=== PATIENT | male | born 1955 | race African-American/Black ===

== ENCOUNTER 2018-11-13 22:26 | Inpatient (IN) | payer OTHER, BC ==
[2018-11-13] MEDS ORDERED: SODIUM CHLORIDE 0.9% 500 ML INFUS.BAG IV ONE (23:41)
[2018-11-13] MEDS ORDERED: ACETAMINOPHEN 1000 MG/100 ML VIAL (NON FORMULARY) IVPB ONE (23:41)
--- NOTE | 2018-11-13 23:45 | PDOC ---
History of Present Illness - General Stated Complaint: FELL Time Seen by Provider: 11/13/18 22:45 - History of Present Illness Initial Comments: The pt is a 63M w/ an unknown medical history who presents by EMS after being found down. Last known well 5 days ago. A friend of the pt called the apartment management today who called EMS. The pt was found down in his home. Pt w/ left sided weakness, no reported pain. Pt unable to provide history, EMS did not find any medications or paperwork for pt's medical history 11/14/18 00:17 NIH Stroke Scale - Last Known Well Date/Time & Onset Date Last Known Well: 11/09/18 Time Last Known Well: 00:00 - Initial Evaluation Level of consciousness: Not alert, but arousable with minimal stimulation Ask patient the month and their age: Answers one correctly Ask patient to open & close eyes; make fist and let go: Obeys both correctly Best gaze (horizontal eye movement): Normal Visual field testing: No visual field loss Facial paresis (Show teeth/raise eyebrows/close eyes tight): Minor paralysis ( flattened nasolabial fold, asymmetry on smiling) (left lower facial paralysis) Motor Function: Left Arm: No movement Motor Function: Right Arm: Normal (extends arm 90 (or 45) degrees for 10 seconds without drift Motor Function: Left Leg: No effort against gravity Motor Function: Right Leg: Drift Limb Ataxia: Present in two limbs Sensory(Use pinprick test arms,legs,trunk,face/side to side): Mild to moderate decrease in sensation (LUE/LLE) Best language (Describe picture, name items, read sentences): Mild to moderate aphasia Dysarthria (read several words): Mild to moderate slurring of words Extinction and Inattention: No abnormality - Total Score NIH Stroke Scale Score: 16 Past History - Past Medical History Allergies/Adverse Reactions: Allergies Allergy/AdvReac Type Severity Reaction Status Date / Time No Known Allergies Allergy Verified 11/14/18 00:13 Home Medications: Ambulatory Orders Unobtainable 11/14/18 Review of Systems - Review of Systems Able to Perform ROS?: No (2/2 medical condition) *Physical Exam - Physical Exam Comments: GENERAL: Drowsy, arousable to verbal stimuli, follows simple commands, oriented to person HEAD: No signs of trauma, normocephalic, atraumatic EYES: PERRLA, no gaze deviation, sclera anicteric, conjunctiva clear ENT: Hearing grossly normal, nares patent, oropharynx clear without exudates. Moist mucosa LUNGS: No distress, CTAB HEART: Tachycardic rate w/ regular rhythm, normal S1 and S2, no murmurs appreciated, peripheral pulses normal and equal bilaterally ABDOMEN: Soft, protuberant, NTTP, normoactive bowel sounds. No guarding, no rebound EXTREMITIES: LUE/LLE weakness and decreased sensation to light touch; Wound to left anterior wallis w/o active hemorrhage; multiple small abrasions to left shoulder, abrasion to right ant. lower leg NEUROLOGICAL: Left lower facial paralysis, LUE/LLE weakness (0/5); Slurred speech; follows simple commands SKIN: Warm, Dry 11/14/18 00:18 ED Treatment Course - LABORATORY CBC & Chemistry Diagram: 11/14/18 00:00 11/14/18 00:00 - RADIOLOGY Radiology Studies Ordered: Category Date Time Status HEAD CT WITHOUT CONTRAST [CT] Stat CT Scan 11/13/18 23:40 Ordered Radiograph Interpretation: EXAM: HEAD CT WITHOUT CONTRAST HISTORY: Status post fall FINDINGS: Age-indeterminate infarct within the right basal ganglia. Clinical correlation is advised. MRI correlation will be of value. No evidence of hemorrhage, mass effect, midline shift, hydrocephalus, or extra-axial collections. No hyperdense arterial or venous sinus. Vascular calcifications of the carotid siphons. The calvarium is unremarkable Reported By: Jose Antonio Castillo MD11/14/2018 01:41 Medical Decision Making - Medical Decision Making The pt is a 63M w/ an unknown PMH who presents for evaluation after being found down at home after 5 days. ED Course Labs sent ECG CXR CT head 11/14/18 00:19 Continue to pend acceptance of chemistries by lab 11/14/18 01:29 Notified by Imaging numerical control machine tool operator that pt has R basal ganglia infarct, acute vs subacute 11/14/18 02:[address] Young -Will give ASA 162mg 11/14/18 02:54 WBC 10.6, afebrile, non-tachycardic No anemia Lytes unremarkable Cr elevated at 1.4 Lactate 2.8 CK 2485 -receiving IVF Trop I neg Plan for admission for rhabdo, stroke 11/14/18 04:27 Discharge - Discharge Information Problems reviewed: Yes Clinical Impression/Diagnosis: Stroke Qualifiers: CVA mechanism: unspecified Qualified Code(s): I63.9 - Cerebral infarction, unspecified Rhabdomyolysis Qualifiers: Rhabdomyolysis type: non-traumatic Qualified Code(s): M62.82 - Rhabdomyolysis Fall Qualifiers: Encounter type: initial encounter Qualified Code(s): W19.XXXA - Unspecified fall, initial encounter Condition: Fair - Admission Yes - Follow up/Referral - Patient Discharge Instructions - Post Discharge Activity
--- NOTE | 2018-11-13 23:46 | PDOC ---
Documentation entered by Lizy Sorto SCRIBE, acting as scribe for Shagufta Herman MD. Shagufta Herman MD: This documentation has been prepared by the Macario velazquez Adrianna, SCRIBE, under my direction and personally reviewed by me in its entirety. I confirm that the documentation accurately reflects all work, treatment, procedures, and medical decision making performed by me. Attending Attestation - Resident Resident Name: Rob Lew - ED Attending Attestation I have performed the following: I have examined & evaluated the patient, The case was reviewed & discussed with the resident, I agree w/resident's findings & plan, Exceptions are as noted - HPI HPI: 11/13/18 23:35 63-year-old male brought in by ambulance after being found down on the floor. Friends or family members had called the building wrecker after this patient had not been heard up for the past 5 days. - Physicial Exam PE: 11/13/18 23:36 Disheveled 63-year-old male found in feces and urine brought in by paramedics, he has significant left sided weakness and sl slurred speech Head no scalp lacerations appreciated Dry mucus membranes neck supple lungs clear to auscultation CVS regular rate rhythm S1-S2 abdomen protuberant with a reducible umbilical hernia Back does not show any wounds There are 2 punctate puncture-like wounds on his left wallis and lower foot neuro slurred speech, significant left sided arm and leg weakness - Medical Decision Making 11/13/18 23:42 Concern for stroke ,sepsis,MD cr scan head,UA,ekg,cxr,cbc,BC,comp pending
[2018-11-14 00:12] VITALS: BMI 32.8
[2018-11-14 01:34] LABS: BASO % 0.2 % (0-2.0); EOS % 0.8 % (0-4.5); HEMATOCRIT 50.2 % (35.4-49); HEMOGLOBIN 16.3 GM/dL (11.7-16.9); MCH 28.5 pg (25.7-33.7); MCHC 32.5 g/dl (32.0-35.9); MEAN CELL VOLUME 87.7 fl (80-96); MEAN PLT VOLUME 10.3 fl (7.5-11.1); MONO % 5.3 % (3.8-10.2); NEUT % 85.7 % (42.8-82.8); PLATELET COUNT 189 K/MM3 (134-434); RBC 5.73 M/mm3 (4.00-5.60); RDW 14.3 % (11.9-15.9); WHITE BLOOD COUNT 10.6 K/mm3 (4.0-10.0)
[2018-11-14 01:39] LABS: VENOUS PC02 40.7 mmHg (38-52); VENOUS PH 7.39 (7.31-7.41)
[2018-11-14 01:41] LABS: VENOUS PO2 < 49 mmHg (28-48)
[2018-11-14 02:22] LABS: ALBUMIN 3.4 g/dl (3.4-5.0); BILIRUBIN,TOTAL 1.2 mg/dL (0.2-1); BLOOD UREA NITROGEN 37.4 mg/dL (7-18); CALCIUM 9.1 mg/dL (8.5-10.1); CREATININE 1.4 mg/dL (0.55-1.3); POTASSIUM 4.3 mmol/L (3.5-5.1); TOT PROT 8.8 g/dl (6.4-8.2)
[2018-11-14] MEDS ORDERED: ASPIRIN 81 MG CHEWABLE TABLETS PO ONE (02:54)
[2018-11-14] MEDS ORDERED: ASPIRIN 81 MG CHEWABLE TABLETS ONE (03:00)
--- NOTE | 2018-11-14 03:38 | PN ---
Teaching Attending Note Name of Resident: Deanna Quach ATTENDING PHYSICIAN STATEMENT I saw and evaluated the patient. I reviewed the resident's note and discussed the case with the resident. I agree with the resident's findings and plan as documented. SUBJECTIVE: 63M w/ an unknown medical history brought in by EMS after being found down on ground in his home. Last known to be well 5 days ago. A friend of the pt called the apartment management today who called EMS. The pt was found down in his home. Pt noted to have left sided weakness. No complaints of pain. nih stroke scale in er was 17. Patient himself unable to provide much history due to severe dysarthria. Relying mostly on EMR. OBJECTIVE: Last Vital Signs Temp Pulse Resp BP Pulse Ox 97.4 F L 103 H 19 141/100 96 11/14/18 00:06 11/14/18 00:06 11/14/18 00:06 11/14/18 00:06 11/14/18 00:06 gen- nontoxic, heent -head atraumatic, left eye discharge seen neck -supple s1+s2+rrr abdomen soft, nt, bs+ neuro -left facial droop, left upper and lower extremity paralysis, left sided decrease in sensation, +dysarthria, left biceps hyperreflexia, +babinski on left side Abnormal Lab Results 11/14/18 11/14/18 11/14/18 00:00 00:00 00:00 WBC 10.6 H RBC 5.73 H Hct 50.2 H Absolute Neuts (auto) 9.1 H Neutrophils % 85.7 H POC VBG pO2 < 49 H VBG O2 Sat (Julian) 66.0 L Carbon Dioxide 19 L BUN 37.4 H Creatinine 1.4 H Random Glucose 172 H Lactic Acid Total Bilirubin 1.2 H AST 61 H Creatine Kinase CK-MB (CK-2) Total Protein 8.8 H Total LDL Cholesterol 11/14/18 11/14/18 00:00 00:00 WBC RBC Hct Absolute Neuts (auto) Neutrophils % - POC VBG pO2 VBG O2 Sat (Julian) Carbon Dioxide BUN Creatinine Random Glucose Lactic Acid 2.8 H* Total Bilirubin AST Creatine Kinase 2485 H CK-MB (CK-2) 13.4 H Total Protein Total LDL Cholesterol [address] of head- right basilar infarct - indeterminant age ASSESSMENT AND PLAN: #CVA -suspect right cerebral territory infarct- possibly mca. Complete left sided paralysis. Probably incidental finding of right basilar infarct. Pt not a candidate for TPA - unknown time spent on ground and unknown onset time of symptoms. NIH scale was 17 -telemetry -npo -asa given -hold off statin given rhabdo -neuro consult -brain mri/mra -neck mra -carotid duplex -echo -speech and swallow eval -PT eval -bed rest -fall precautions -aspiration precautions #Rhabdomyolysis - ck 2485. likely from prolonged time spent on ground -send urine moglobin -iv fluid hydration #ESPINOZA- might be ATN from underlying rhabdo. -urine lytes -avoid nephrotoxins -renal u/s #S/p fall - no obvious evidence of trauma on exam #left eye bacterial conjunctivitis -moxifloxacin eye drops dvt ppx- heparin sc
[2018-11-14 03:46] LABS: INR 1.09 (0.83-1.09); PROTHROMBIN TIME (PATIENT) 12.9 SEC (9.7-13.0)
--- NOTE | 2018-11-14 03:51 | PN.NIHSS ---
NIH Stroke Scale - Last Known Well Date/Time & Onset Date Last Known Well: 11/08/18 - Initial Evaluation Level of consciousness: Alert Ask patient the month and their age: Answers both correctly Ask patient to open & close eyes; make fist and let go: Obeys both correctly Best gaze (horizontal eye movement): Normal Visual field testing: No visual field loss Facial paresis (Show teeth/raise eyebrows/close eyes tight): Complete paralysis of one or both sides (Upper and lower face) Motor Function: Left Arm: No movement Motor Function: Right Arm: Normal (extends arm 90 (or 45) degrees for 10 seconds without drift Motor Function: Left Leg: No effort against gravity Motor Function: Right Leg: No effort against gravity Limb Ataxia: Present in two limbs Sensory(Use pinprick test arms,legs,trunk,face/side to side): Mild to moderate decrease in sensation Best language (Describe picture, name items, read sentences): Mild to moderate aphasia Dysarthria (read several words): Mild to moderate slurring of words Extinction and Inattention: No abnormality - Total Score NIH Stroke Scale Score: 18
--- NOTE | 2018-11-14 04:04 | HP ---
CHIEF COMPLAINT: PCP: none HISTORY OF PRESENT ILLNESS: 63 y/o/m with PMHx of HTN, HLD, DM BIB by EMS after being found down in his apartment. A friend of the patient called his apartment management who called EMS and the patient was found on the floor of his apartment. Patient states he thinks he fell on 1/3 but is unsure. He was unable to get up due to weakness and states he soiled himself and had diarrhea when he was on the floor. Patient is not able to move his left arm and states he still feels weak. He states that before he fell he felt weak and dizzy and was unable to hold himself up. He states he did not lose consciousness and did not hit his head. He endorses chronic abd pain and back pain. He denies CP, SOB, Nausea, vomiting, changes in vision. ER course was notable for: (1) Age-indeterminate infarct within the right basal ganglia. (2) Neuro consulted, Dr. Martinez. recommended started aspirin PAST MEDICAL HISTORY: HTN, HLD, DM PAST SURGICAL HISTORY: denies Social History: Smoking: denies Alcohol: denies Drugs: denies Allergies No Known Allergies Allergy (Verified 11/14/18 00:13) HOME MEDICATIONS: Home Medications Medication Instructions Recorded Unobtainable 11/14/18 REVIEW OF SYSTEMS Constitutional: weakness, slurred speech. denies fever HEENT: denies vision changes Cardio: denies palpitations, chest pain Resp: denies SOB, wheezing GI: diarrhea, abd pain denies nausea, vomiting MSK: back pain. denies joint pain, neck pain SKIN: denies rashes Neuro: headache, left sided weakness. denies loss of consciousness, numbness, tingling PHYSICAL EXAMINATION Vital Signs - 24 hr 11/14/18 00:06 Temperature 97.4 F L Pulse Rate 103 H Respiratory 19 Rate Blood Pressure 141/100 O2 Sat by Pulse 96 Oximetry (%) GENERAL: slurred speech. Awake, alert, and fully oriented, HEAD: NC/AT EYES: PERRL, EOMI EARS, NOSE, THROAT: Dry Mucous membranes. ear normal. nares patent, oropharynx clear without exudates. NECK: supple, no cervical lymphadenopathy LUNGS: Breath sounds equal, clear to auscultation bilaterally. No wheezes, and no crackles. No accessory muscle use. HEART: Tachycardic, normal rhythm, normal S1 and S2 without murmur, rub or gallop. ABDOMEN: distended Soft, nontender, normoactive bowel sounds, no guarding, no rebound, no masses. MUSCULOSKELETAL: unable to move left arm. No bony deformities or tenderness, no step offs appreciated on the spine. No CVA tenderness. UPPER EXTREMITIES: 2+ pulses, warm, well-perfused. No cyanosis. No clubbing. No peripheral edema. LOWER EXTREMITIES: on the left wallis there is a 1cm circular wound with no active bleeding or drainage, no surrounding erythema NEUROLOGICAL: dysarthria, moderate aphasia, unilateral left sided facial paralysis, patient unable to move left arm, lower extremities strength 1/5, ataxia of right upper extremity, normal sensation but unable to distinguish between sharp/dull objects. NIHSS 18 PSYCHIATRIC: Cooperative. Good eye contact. Appropriate mood and affect. SKIN: decreased turgor. Warm. no rashes or lesions noted, normal capillary refill. Laboratory Results - last 24 hr 11/14/18 11/14/18 11/14/18 00:00 00:00 00:00 WBC 10.6 H RBC 5.73 H Hgb 16.3 Hct 50.2 H MCV 87.7 MCH 28.5 MCHC 32.5 RDW 14.3 Plt Count 189 MPV 10.3 Absolute Neuts (auto) 9.1 H Neutrophils % 85.7 H Lymphocytes % 8.0 Monocytes % 5.3 Eosinophils % 0.8 Basophils % 0.2 Nucleated RBC % 0 PT with INR INR PTT (Actin FS) VBG pH 7.39 POC VBG pCO2 40.7 POC VBG pO2 < 49 H VBG HCO3 24.0 VBG O2 Sat (Julian) 66.0 L VBG Base Excess -0.5 Sodium 141 Potassium 4.3 Chloride 106 Carbon Dioxide 19 L Anion Gap 16 BUN 37.4 H Creatinine 1.4 H Est GFR (CKD-EPI)AfAm 60.68 Est GFR (CKD-EPI)NonAf 52.35 Random Glucose 172 H Lactic Acid Calcium 9.1 Total Bilirubin 1.2 H AST 61 H ALT 22 Alkaline Phosphatase 115 Creatine Kinase Creatine Kinase Index CK-MB (CK-2) Troponin I Total Protein 8.8 H Albumin 3.4 Triglycerides Total LDL Cholesterol HDL Cholesterol 11/14/18 11/14/18 11/14/18 00:00 00:00 00:00 WBC RBC Hgb Hct MCV MCH MCHC RDW Plt Count MPV Absolute Neuts (auto) Neutrophils % Lymphocytes % Monocytes % Eosinophils % Basophils % Nucleated RBC % PT with INR 12.90 INR 1.09 PTT (Actin FS) 36.3 VBG pH POC VBG pCO2 POC VBG pO2 VBG HCO3 VBG O2 Sat (Julian) VBG Base Excess Sodium Potassium Chloride Carbon Dioxide Anion Gap BUN Creatinine Est GFR (CKD-EPI)AfAm Est GFR (CKD-EPI)NonAf Random Glucose Lactic Acid Calcium Total Bilirubin AST ALT Alkaline Phosphatase Creatine Kinase 2485 H Creatine Kinase Index 0.5 CK-MB (CK-2) 13.4 H Troponin I 0.04 Total Protein Albumin Triglycerides 125 Total LDL Cholesterol 213 H HDL Cholesterol 56 11/14/18 00:00 WBC RBC Hgb Hct MCV MCH MCHC RDW Plt Count MPV Absolute Neuts (auto) Neutrophils % Lymphocytes % Monocytes % Eosinophils % Basophils % Nucleated RBC % PT with INR INR PTT (Actin FS) VBG pH POC VBG pCO2 POC VBG pO2 VBG HCO3 VBG O2 Sat (Julian) VBG Base Excess Sodium Potassium Chloride Carbon Dioxide Anion Gap BUN Creatinine Est GFR (CKD-EPI)AfAm Est GFR (CKD-EPI)NonAf Random Glucose Lactic Acid 2.8 H* Calcium Total Bilirubin AST ALT Alkaline Phosphatase Creatine Kinase Creatine Kinase Index CK-MB (CK-2) Troponin I Total Protein Albumin Triglycerides Total LDL Cholesterol HDL Cholesterol Imaging: FINDINGS: Age-indeterminate infarct within the right basal ganglia. Clinical correlation is advised. MRI correlation will be of value. No evidence of hemorrhage, mass effect, midline shift, hydrocephalus, or extra-axial collections. No hyperdense arterial or venous sinus. Vascular calcifications of the carotid siphons. The calvarium is unremarkable Reported By: Jose Antonio Castillo MD11/14/2018 01:41 ASSESSMENT/PLAN: 63 y/o/m with PMHx of HTN, HLD, DM BIB by EMS for a CVA. 1)Stroke - NIHSS 18, R basal ganglia infarct acute vs. subacute -Patient with left sided weakness -Neuro consulted, Dr. Martinez -started ASA -PT -Speech/Swallow Eval -NPO for aspiration precaution -Fall and seizure precautions -Echocardiogram to evaluate cardiac function -MRI and MRA of brain -MRA neck -Carotid duplex 2)Elevated CK - patient reportedly lying on floor for 5 days -IVF NS@ 150mls/hr -Urine Myoglobin ordered -trend CK 3)Lactic acidosis -IVF -trend lactic acid 4)ESPINOZA -IVF -monitor 5)Elevated T-bili -RUQ U/S -get fractionated bilirubin 6)Prophylaxis -Heparin 7)FEN -NS @ 150mls/hr 8)Dispo -admitted to med surg Visit type - Emergency Visit Emergency Visit: Yes ED Registration Date: 11/14/18 Care time: The patient presented to the Emergency Department on the above date and was hospitalized for further evaluation of their emergent condition. - New Patient This patient is new to me today: Yes Date on this admission: 11/14/18 - Critical Care Critical Care patient: No ATTENDING PHYSICIAN STATEMENT I saw and evaluated the patient. I reviewed the resident's note and discussed the case with the resident. I agree with the resident's findings and plan as documented. SUBJECTIVE: OBJECTIVE: ASSESSMENT AND PLAN:
[2018-11-14] MEDS ORDERED: INSULIN (NOVOLOG) ASPART 100 UNITS/ML 10ML VIAL ONE (04:47)
[2018-11-14] MEDS: INSULIN SLIDING SCALE (NOVOLOG) 1 VIAL SQ SCH ×4 (05:00→23:51)
[2018-11-14] MEDS: SODIUM CHLORIDE 1,000 ML IV SCH (05:30)
[2018-11-14 06:01] LABS: EPI CELLS 15.7 /HPF (0-5/HPF); HYALINE CASTS 163 /lpf (0-8); URINE APPEARANCE CLOUDY; URINE BILIRUBIN 2+ (NEGATIVE); URINE COLOR DK YELLOW; URINE GLUCOSE (UA) NEGATIVE (NEGATIVE); URINE KETONE 1+ (NEGATIVE); URINE LEUK ESTERASE NEGATIVE (NEGATIVE); URINE NITRITE NEGATIVE (NEGATIVE); URINE PROTEIN 3+ (NEGATIVE)
[2018-11-14] MEDS ORDERED: HEPARIN NA (PORCINE) 5,000 UNITS/ML 1ML VIAL ONE (06:24)
[2018-11-14] MEDS: HEPARIN NA (PORCINE) 5,000 UNITS/ML 1ML VIAL SQ SCH ×3 (06:34→23:50)
[2018-11-14 07:43] LABS: BASO % 0.2 % (0-2.0); EOS % 0.7 % (0-4.5); HEMATOCRIT 46.5 % (35.4-49); HEMOGLOBIN 15.5 GM/dL (11.7-16.9); LYMPH % 7.7 % (8-40); MCH 28.7 pg (25.7-33.7); MCHC 33.4 g/dl (32.0-35.9); MEAN PLT VOLUME 8.7 fl (7.5-11.1); MONO % 8.4 % (3.8-10.2); PLATELET COUNT 222 K/MM3 (134-434); RBC 5.41 M/mm3 (4.00-5.60); RDW 14.2 % (11.9-15.9); WHITE BLOOD COUNT 12.6 K/mm3 (4.0-10.0)
[2018-11-14 07:48] LABS: ALBUMIN 3.4 g/dl (3.4-5.0); BILIRUBIN,TOTAL 1.4 mg/dL (0.2-1); BLOOD UREA NITROGEN 39.4 mg/dL (7-18); CREATININE 1.6 mg/dL (0.55-1.3); MAGNESIUM 2.4 mg/dL (1.8-2.4); PHOSPHOROUS 3.2 mg/dL (2.5-4.9); POTASSIUM 3.7 mmol/L (3.5-5.1); TOT PROT 8.3 g/dl (6.4-8.2)
--- NOTE | 2018-11-14 08:18 | CONSULT ---
Admitting History and Physical - Smoking History Smoking history: Never smoked - Alcohol/Substance Use Hx Alcohol Use: No History - Admission Reason For Visit: CEREBROVASCULAR ACCIDENT (CVA) Speech Evaluation - Communication Primary Language: DIVEHI Communication: Yes: Simple Responses (WFL), Dysarthria, Aphasia Oral Expression Ability: Yes: Mild Impairment - Speech Production Dysarthria: Yes: Flaccid Apraxia: Yes Able to Make Needs Known: Yes: Mildly Impaired Intelligibility: Yes: Moderately Impaired (secondary to dysarthria and aphasia) - Speech Characteristics Voice Loudness: Mildly Soft/Quiet Voice Pitch: Yes: Limited Variation Voice Phonatory-based Quality: Yes: Breathy, Weak Speech Pattern: Normal Speech Clarity: < 50% Nasal Resonance: Normal Articulation: Yes: Imprecise Rate of Speech: Too Slow Voice, Other Observations: Yes: Mouth Breathing, Disordered Intonation Voice Comment: Vocal quality observed as reduced pitch range, breathy - Language/Auditory Comprehension Follows: Yes: 1 Stage Simple Commands (WFL for some tasks i.e. "open your mouth " "move your tongue"), 2 Stage Simple Commands (Reduced secondary to l sided weakness.) Observation: Able to respond to yes/no queries: Yes, Yes/No Confusion: Yes ( sometimes), Comprehends Conversational Speech: Yes, Benefits from Slow Speech: Yes, Benefits from Repetiton: Yes, Benefits from Increased Volume of Speech: No - Language/Verbal Expression Aphasia: Yes: Paraphrasic Errors, Apraxia Able to Respond to Simple Queries: Yes: WNL Able to Communicate Wants and Needs: Yes: Mildly Impaired Functional Communication Status: Yes: Mildly Impaired Aware of Errors: No Attempts to Correct Errors: No Use of Gestures: No Written Expression: Not examined Oral Expression: Aphasic, apraxic dysarthric for sentences. Speech improves with short phrases and one word responses. Reading Comprehension: Not examined Calculations: Not examined - Memory/Perception superintendent terminal Memory: Yes: Moderately Impaired Short Term Memory: Yes: Moderately Impaired Hemaniopsia: Yes: Left Visual Neglect: Yes: Left - Swallow Evaluation/Bedside Assessment Current Nutritional Intake: NPO (pending swallow eval) Oral Secretions: Yes: Dryness, Tongue Coated Tracheostomy Present: No Patient on Ventilator: No Dentition: Yes: Adequate (fair condition), Missing Teeth Facial Symmetry at Rest: Facial Droop Left Facial Symmetry on Retraction: Facial Droop Left Facial Movement: Controlled Sensation: Normal Facial Comment: left side facial droop but WFL for swallowing, Jaw Position: Closed at Rest Against Resistance Opening: Weak (mild left side weakness) Against Resistance Closing: Normal Pucker Lips: Droops Left Smile: Droops Left Lips, Comment: mild left side weakness but able to purse Lingual Movement: Apraxic Lingual Speed of Movement: Reduced Lingual Movement Strgth Against Opposition: Normal Lingual Movement Characteristics: Fasciculations Lingual Comment: intra-oral WFL for speech and swallowing purposes. Soft Palate Description: Normal Color, Normal Arch Hard Palate Description: Normal Color, Normal Arch Gag Reflex: Strong Velopharyngeal Movement: Normal Laryngeal Elevation: WFL Laryngeal Movement: Able to Palpate Needs Assistance: Yes Rate of Intake: Slow/Holding Bolus Size: Small Labial Seal: Impaired Left (but WFL) Chewing: WFL Oral Prep Time: Increased A-P Transit: WFL Pocketing: Clears Independently Timing of Swallow: Delayed (mild 2-3 seconds) Odynophagia: Pharyngeal Coughing/Throat Clear: Yes (subtle ) Change in Voice: No Other Findings/Remarks: 63 yo male seen at bedside for swallow eval to r/o dysphagia. Pt is verbal, A& Ox2, cooperative. Admitted to [facility] after being found on the floor unable to get up with slurred speech (possible CVA). Pt presents with left sided paralysis of upper extremity and facial droop with slurred speech (50% intelligibility). PMHX includes HTN, HLD, DM BIB and ESPINOZA. Speech is aphasic, with apraxia and mild dysarthria. Vocal quality is reduced. Airway protection is WFL. CXR unremarkable at this time. Current Diet: NPO Pt given po trials of puree and soft cookie with total assistance revealed good acceptance, increase bolus manipulation with soft chewable cookie with increased A-P transit. Pharyngeal swallows are mild delayed 2-3 seconds with no cough observed after the swallow. Significant bolus residue observe with chewable bolus after the swallow and cleared with several liquid trials and verbal prompting. Thin liquid trials via cup with total assistance revealed adequate bolus containment and transport. Pharyngeal swallows are mild delayed 2-3 seconds with no cough observed after the swallow. Recommendations - Speech Evaluation, Impression/Plan Impression: 63 yo presents with mild to moderate oral phase dysphagia for chewable solids. Mild Pharyngeal phase dysphagia for purees and thin liquids observed with no s/s of aspiration. Speech is characterized as aphasic with mild apraxic and dysarthric secondary to CVA and left sided weakness. Recommended Therapies: Speech (consider for mild asphasia.), Articulation (left sided weakness affects articulation) Flight Communications Officer Goals: tolerate the least restrictive diet without s/s of aspiration. Short Term Goals: tolerate purees with thin liquids without s/s of aspiration - Dysphagia Impressions/Plan Swallowing Skills: Impaired Dysphagia Impressions: Mild Impairment (pharyngeal phase.), Moderate Impairment (for chewable solids.), Risk of Aspiration *Silent aspiration: cannot be R/O at bedside Dysphagia Treatment Plan: Small Bites, Safe Rate, 1/2 tsp. at a time, Elevate HOB during feed, Other (Provide oral care after meals. Monitor nutritional intake and pulmonary status) Dysphagia Evaluation Summary: Trial pureed with thin liquids as tolerated. Observe standard aspiration precautions with oral care after meal. Medication can be crushed in applesauce for ease of swallowing. Consider speech intervention for left facial droop and speech. Results given to hemodialysis charge nurse verbally and to PCP via chart. FRONTEND ENGINEER to follow up for diet tolerance, possible upgrade and speech therapy (if warranted). - Recommendations Diet Consistency: Dysphagia Pureed Medication Administration: Crushed with applesauce Liquids: Thin Liquids
--- NOTE | 2018-11-14 08:22 | PN ---
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, Physician History of Present Illness: The pt is a 63M w/ an unknown medical history who presents by EMS after being found downin his home. Last known well 5 days ago. A friend of the pt called the apartment management today who called EMS. Pt w/ left sided weakness, no reported pain. Pt unable to provide history, EMS did not find any medications or paperwork for pt's medical history - Current Medication List Current Medications: Active Medications Aspirin (Ecotrin -) 81 mg PO DAILY [facility] Heparin Sodium (Porcine) (Heparin -) 5,000 unit SQ TID [facility] Last Admin: 11/14/18 06:34 Dose: 5,000 unit Sodium Chloride (Normal Saline -) 1,000 mls @ 150 mls/hr IV ASDIR [facility] Last Admin: 11/14/18 05:30 Dose: 150 mls/hr Insulin Aspart (Novolog Vial Sliding Scale -) 1 vial SQ Q6H [facility]; Protocol Last Admin: 11/14/18 05:00 Dose: 1 unit - Objective Vital Signs: Vital Signs Temperature 97.4 F L 11/14/18 00:06 Pulse Rate 96 H 11/14/18 05:13 Respiratory Rate 15 11/14/18 05:13 Blood Pressure 180/92 H 11/14/18 05:13 O2 Sat by Pulse Oximetry (%) 100 11/14/18 05:13 Labs: CBC, BMP 11/14/18 06:43 INR, PTT INR 1.09 (0.83-1.09) 11/14/18 00:00
[2018-11-14 10:12] LABS: URINE RBC 10 /hpf (0-4); URINE WBC 3 /hpf (0-5)
[2018-11-14] MEDS ORDERED: ASPIRIN COATED 81 MG TABLET.EC ONE (10:32)
[2018-11-14] MEDS: ASPIRIN COATED 81 MG TABLET.EC PO SCH (10:37)
--- NOTE | 2018-11-14 12:11 | EKG ---
Test Reason : Blood Pressure : / mmHG Vent. Rate : 104 BPM Atrial Rate : 104 BPM P-R Int : 144 ms QRS Dur : 122 ms QT Int : 406 ms P-R-T Axes : 033 -70 -15 degrees QTc Int : 533 ms SINUS TACHYCARDIA POSSIBLE LEFT ATRIAL ENLARGEMENT RIGHT BUNDLE BRANCH BLOCK LEFT ANTERIOR FASCICULAR BLOCK BIFASCICULAR BLOCK LEFT VENTRICULAR HYPERTROPHY CANNOT RULE OUT SEPTAL INFARCT , AGE UNDETERMINED ABNORMAL ECG NO PREVIOUS ECGS AVAILABLE Confirmed by CAMERON PENA MD ([id number]) on 11/14/2018 12:10:35 PM Referred By: Confirmed By:CAMERON PENA MD
[2018-11-14] MEDS ORDERED: hydrALAZINE HCL 20 MG/ML VIAL ONE (12:29)
[2018-11-14] MEDS: hydrALAZINE HCL 20 MG/ML VIAL IVPUSH PRN (12:32)
--- NOTE | 2018-11-14 12:54 | EKG ---
Test Reason : Blood Pressure : / mmHG Vent. Rate : 096 BPM Atrial Rate : 096 BPM P-R Int : 140 ms QRS Dur : 136 ms QT Int : 424 ms P-R-T Axes : 035 -68 -07 degrees QTc Int : 535 ms SINUS RHYTHM WITH PREMATURE ATRIAL COMPLEXES POSSIBLE LEFT ATRIAL ENLARGEMENT RIGHT BUNDLE BRANCH BLOCK LEFT ANTERIOR FASCICULAR BLOCK BIFASCICULAR BLOCK LEFT VENTRICULAR HYPERTROPHY CANNOT RULE OUT SEPTAL INFARCT (CITED ON OR BEFORE 14-NOV-2018) ABNORMAL ECG WHEN COMPARED WITH ECG OF 14-NOV-2018 00:23, PREMATURE ATRIAL COMPLEXES ARE NOW PRESENT Confirmed by JEAN EVANGELISTA, CAMERON ([id number]) on 11/14/2018 12:54:34 PM Referred By: Confirmed By:CAMERON PENA MD
--- NOTE | 2018-11-14 16:21 | ECHO ---
Name: TRAVIS HILTONLYNDA Marcial Exam:Adult Echocardiogram Study Date: 11/14/2018 03:10 PM Age: 63 yrs Reason For Study: CVA EVALUATE CARDIAC FUNCTION Height: 67 in Weight: 210 lb BSA: 2.1 m2 MMode/2D Measurements & Calculations IVSd: 1.0 cm Ao root diam: 2.7 cm LVIDd: 4.4 cm LVIDs: 3.3 cm LVPWd: 0.99 cm EDV(Teich): 89.7 ml LVOT diam: 2.1 cm ESV(Teich): 43.9 ml Doppler Measurements & Calculations MV E max jose: 49.4 cm/sec Ao V2 max: 97.3 cm/sec MV A max jose: 90.8 cm/sec Ao max P.8 mmHg MV E/A: 0.54 MV dec time: 0.25 sec ELY(V,D): 3.2 cm2 LV V1 max P.1 mmHg Med Peak E' Jose: 4.4 cm/sec LV V1 max: 87.9 cm/sec Med E/e': 11.3 Lat Peak E' Jose: 8.6 cm/sec Lat E/e': 5.8 Procedure The study was technically difficult with many images being suboptimal in quality. Left Ventricle The left ventricular size, thickness and function are normal. The left ventricular ejection fraction is normal. E/A reversal consistent with but not diagnostic of poor LV compliance. Regional wall motion abnormalities cannot be excluded due to limited visualization. Right Ventricle The right ventricle is not well visualized. Atria The left atrium is not well visualized. Right atrium not well visualized. Mitral Valve There is mild mitral valve thickening. There is no mitral valve stenosis. There is trace to mild mitr al regurgitation. Tricuspid Valve The tricuspid valve is not well visualized. There is no tricuspid stenosis. There was insufficient TR detected to calculate RV systolic pressure. Aortic Valve The aortic valve is not well visualized. No hemodynamically significant valvular aortic stenosis. No aortic regurgitation is present. Pulmonic Valve The pulmonic valve is not well visualized. Great Vessels The aortic root is normal size. Pericardium/Pleura There is no pericardial effusion. Interpretation Summary The study was technically difficult with many images being suboptimal in quality. The left ventricular size, thickness and function are normal The left ventricular ejection fraction is normal. There is trace to mild mitral regurgitation. E/A reversal consistent with but not diagnostic of poor LV compliance There was insufficient TR detected to calculate RV systolic pressure. Regional wall motion abnormalities cannot be excluded due to limited visualization. MD Sanjiv Arora 11/14/2018 04:21 PM
--- NOTE | 2018-11-14 17:28 | HOSP ---
Subjective - Review of Symptoms Neurological: Yes: Other (paralysis to left arm/leg. Slurred speech.) Physical Examination Vital Signs: Vital Signs Temperature 97.4 F L 11/14/18 00:06 Pulse Rate 104 H 11/14/18 14:00 Respiratory Rate 24 H 11/14/18 14:00 Blood Pressure 168/104 H 11/14/18 14:00 O2 Sat by Pulse Oximetry (%) 100 11/14/18 14:00 Findings/Remarks: GENERAL: slurred speech. Awake, alert, and fully oriented, EYES: PERRL, EOMI EARS, NOSE, THROAT: Dry Mucous membranes. ear normal. nares patent, oropharynx clear without exudates. NECK: supple, no cervical lymphadenopathy LUNGS: Breath sounds equal, clear to auscultation bilaterally. No wheezes, and no crackles. No accessory muscle use. HEART: Tachycardic, normal rhythm, normal S1 and S2 without murmur, rub or gallop. ABDOMEN: distended Soft, nontender, normoactive bowel sounds, no guarding, no rebound, no masses. MUSCULOSKELETAL: unable to move left arm. No bony deformities or tenderness, no step offs appreciated on the spine. No CVA tenderness. UPPER EXTREMITIES: 2+ pulses, warm, well-perfused. No cyanosis. No clubbing. No peripheral edema. LOWER EXTREMITIES: on the left wallis there is a 1cm circular wound with no active bleeding or drainage, no surrounding erythema NEUROLOGICAL: dysarthria, moderate aphasia, unilateral left sided facial paralysis, patient unable to move left arm, lower extremities strength 1/5, ataxia of right upper extremity, normal sensation but unable to distinguish between sharp/dull objects. NIHSS 18 PSYCHIATRIC: Cooperative. Good eye contact. Appropriate mood and affect. SKIN: decreased turgor. Warm. no rashes or lesions noted, normal capillary refill. Labs: CBC, BMP 11/14/18 06:43 11/14/18 06:43 Hospitalist Encounter Assessment: Seen in ED awaiting bed to tele floor. Brother at bedside. Troponins .04-->3.24-->3.2. No ischemic changes on EKGs, RBBB. Will continue to trend . CPK coming down. c/w IVF. Pending TTE, Carotid duplex, cardiology consult, MRI brain/neck Evaluated by CATERING ATTENDANT. Cleared for dysphagia diet with thin liquids Outcome: maintain as in patient on telemetry full code
--- NOTE | 2018-11-14 17:32 | CON.NEURO ---
Consult - Alcohol/Substance Use Hx Alcohol Use: No - Smoking History Smoking history: Never smoked Home Medications - Allergies Allergies/Adverse Reactions: Allergies Allergy/AdvReac Type Severity Reaction Status Date / Time No Known Allergies Allergy Verified 11/14/18 00:13 - Home Medications Home Medications: Ambulatory Orders NK [No Known Home Medication] 11/14/18 Physical Exam-Neuro Vital Signs: Vital Signs Temperature 97.4 F L 11/14/18 00:06 Pulse Rate 104 H 11/14/18 14:00 Respiratory Rate 24 H 11/14/18 14:00 Blood Pressure 168/104 H 11/14/18 14:00 O2 Sat by Pulse Oximetry (%) 100 11/14/18 14:00 Labs: CBC, BMP 11/14/18 06:43 11/14/18 06:43 INR, PTT INR 1.09 (0.83-1.09) 11/14/18 00:00 Assessment/Plan cc Left sided hemiparesis HPI 63 year old male history of HTN,HLD,DM, came with left sided hemiparesis. Patient was lying on the floor for five days, when he was found laying on flOOR. Paitent never had stroke, he did have ? cad. Patient had ct head showed right basal ganglia ishcemic lesion. He is waiting for mri. He had speech and passed swallowing evaluation. PAST MEDICAL HISTORY: HTN, HLD, DM PAST SURGICAL HISTORY: denies Social History: Smoking: denies Alcohol: denies Drugs: denies Allergies No Known Allergies Allergy (Verified 11/14/18 00:13) HOME MEDICATIONS: Home Medications Medication Instructions Recorded Unobtainable 11/14/18 ROS reviewed in chart NEUROLOGICAL EXAMINATION Alert oriented x 2, speech is dysarthric, nih score 18 bp 140/100, neck is supple left sided facial palsy, eomi, left dense hemiparesis ct head right basalganglia infarct Assessment/Plan Right mca stroke ( right basal ganglia) risk factor DM,HTN. Patient has nih score of 18, stroke is five days old. Patient passed swallowing test PLAN: continue aspirin and statin - hold mra of neck as bun creatinine high vascular surgery consult - mra of brain and mri of brain without contrast - speech consult appreciated - pt dvt prophylaxis Thanking you so much Beau Young MD
[2018-11-14] MEDS: ATORVASTATIN CA 80 MG TABLET (FP) PO SCH (23:50)
[2018-11-15] MEDS: hydrALAZINE HCL 20 MG/ML VIAL IVPUSH PRN ×3 (01:27→22:47)
[2018-11-15] MEDS: SODIUM CHLORIDE 1,000 ML IV SCH (05:51)
[2018-11-15] MEDS: HEPARIN NA (PORCINE) 5,000 UNITS/ML 1ML VIAL SQ SCH ×3 (05:51→22:45)
[2018-11-15] MEDS: INSULIN SLIDING SCALE (NOVOLOG) 1 VIAL SQ SCH ×4 (05:51→22:50)
[2018-11-15] MEDS: ASPIRIN COATED 81 MG TABLET.EC PO SCH (09:39)
--- NOTE | 2018-11-15 10:31 | CONSULT ---
<Marcelino Bishop P - Last Filed: 11/15/18 12:25> - Consultation REQUESTING PROVIDER: Vascular Surgery - Malik Koehler CONSULT REQUEST: We have been asked to surgically evaluate this patient for stroke in presence of carotid stenosis Hospitalist BROILER MANAGER: Chacha [facility] HPI: Called to shaneal 63 yo male w/ PMHx as noted below. Patient was BIBA/EMS. Per medical charting/notes, a concerned friend had called the building management to do a welfare check as he wasn't answering his phone. Patient was found lying on the floor of his apartment. Patient states he thinks he fell on but isn't 100% sure of the date. Per notes, at the time, he was unable to get up due to weakness and states he soiled (fecal/urine) himself while he was on the ground. Left sided hemiparesis. Still feels weak. Even though fall was unwitnessed patient states he denies LOC or any head trauma. Denies HERNANDEZ, diaphoresis, palpitations prior too or post fall. Denies n/v/f/c, CP, SOB. Denies changes in vision. Head CT (non-con): Right basal ganglia ishcemic lesion. He had speech and passed swallowing evaluation. Carotid Duplex: small to moderate soft plaque 50-60% stenosis PMHx: HTN, HLD, DM, chronic LBP & ABD pain PSHx: Denies. Home Meds: None Allergies: NKDA ROS: CONSTITUTIONAL: Absent: generalized weakness, malaise, loss of appetite, weight change CARDIOVASCULAR: Absent: lightheadedness, peripheral edema RESPIRATORY: Absent: cough, wheezing, stridor, hemoptysis GASTROINTESTINAL: Absent: abdominal pain, abdominal distension, diarrhea, constipation, melena, hematochezia GENITOURINARY: Absent: dysuria, frequency, urgency, hesitancy, hematuria, flank pain, genital pain MUSCULOSKELETAL: Absent: myalgia, arthralgia, joint swelling, back pain, neck pain SKIN: Absent: rash, itching, pallor HEMATOLOGIC/IMMUNOLOGIC: Absent: easy bleeding, easy bruising, lymphadenopathy NEUROLOGIC: Absent: see hpi PSYCHIATRIC: Absent: anxiety, depression, suicidal or homicidal ideation, hallucinations. PE: GEN: slurred speech. A&O HEAD: NC. AT EYES: PERRL NECK: No appreciable carotid bruit on auscultation bilat LUNGS: CTA bilat HEART: Tachy (100bmp), NSR ABDOMEN: obese habitus. Soft, nt, normoactive bowel sounds, no pulsatile mass. NEURO: dysarthria, moderate aphasia, unilateral left sided facial paralysis, patient unable to move LUE, LE strength 1/5, ataxia of RUE, sensory intact but unable to distinguish between sharp/dull objects PSYCHIATRIC: Cooperative. Good eye contact. Appropriate mood and affect. Last Vital Signs Temp Pulse Resp BP Pulse Ox 98 F 100 H 20 133/85 98 11/15/18 08:53 11/15/18 10:09 11/15/18 08:53 11/15/18 10:09 11/15/18 02:00 CBC, BMP 11/14/18 06:43 11/14/18 06:43 INR, PTT INR 1.09 (0.83-1.09) 11/14/18 00:00 Troponin 11/14/18 12:20 Troponin I 3.22 H* Problem List - Problems (1) CVA (cerebral vascular accident) Assessment/Plan: 63 yo male admitted s/p CVA (Right MCA stroke --> right basal ganglia) now left hemiparesis. NIH score of 18, stroke is five days old. Patient passed swallowing test As per Neurology --> continue ASA & statin f/u MRA (done) PT DVT PPX Trend Troponin Vascular surgery to cont following Code(s): I63.9 - CEREBRAL INFARCTION, UNSPECIFIED Qualifiers: Laterality of affected vessel: left Visit type - Case Type Case Type: ED Admission - Emergency Emergency Visit: Yes ED Registration Date: 11/14/18 Care time: The patient presented to the Emergency Department on the above date and was hospitalized for further evaluation of their emergent condition. - New patient This patient is new to me today: Yes Date on this admission: 11/15/18 <Malik Koehler - Last Filed: 11/15/18 13:25> - Consultation REQUESTING PROVIDER: CONSULT REQUEST: We have been asked to surgically evaluate this patient for ( specify). PCP:Chacha Trinidda NP HISTORY OF PRESENT ILLNESS: PMHx: PSHx: Home Medications Medication Instructions Recorded NK [No Known Home Medication] 11/14/18 Allergies Allergy/AdvReac Type Severity Reaction Status Date / Time No Known Allergies Allergy Verified 11/14/18 00:13 REVIEW OF SYSTEMS: CONSTITUTIONAL: Absent: fever, chills, diaphoresis, generalized weakness, malaise, loss of appetite, weight change CARDIOVASCULAR: Absent: chest pain, syncope, palpitations, irregular heart rate, lightheadedness , peripheral edema RESPIRATORY: Absent: cough, shortness of breath, dyspnea with exertion, wheezing, stridor, hemoptysis GASTROINTESTINAL: Absent: abdominal pain, abdominal distension, nausea, vomiting, diarrhea, constipation, melena, hematochezia GENITOURINARY: Absent: dysuria, frequency, urgency, hesitancy, hematuria, flank pain, genital pain MUSCULOSKELETAL: Absent: myalgia, arthralgia, joint swelling, back pain, neck pain SKIN: Absent: rash, itching, pallor HEMATOLOGIC/IMMUNOLOGIC: Absent: easy bleeding, easy bruising, lymphadenopathy NEUROLOGIC: Absent: headache, focal weakness, paresthesias, dizziness, unsteady gait, seizure, mental status changes, bladder or bowel incontinence PSYCHIATRIC: Absent: anxiety, depression, suicidal or homicidal ideation, hallucinations. PHYSICAL EXAM: GENERAL: Awake, alert, and fully oriented, in no acute distress. HEAD: Normal with no signs of trauma. EYES: PERRL, sclera anicteric, conjunctiva clear. NECK: Normal ROM, supple without lymphadenopathy, JVD, or masses. LUNGS: Clear to auscultation bilat anteriorly. No wheezes, and no crackles. No accessory muscle use. HEART: Regular rate and rhythm. No murmurs ABDOMEN: Soft, nontender, not distended, normoactive bowel sounds, no guarding, no rebound, no masses. No organomegaly. MUSCULOSKELETAL: Normal ROM at all joints. No bony deformities or tenderness. No CVA tenderness. UPPER EXTREMITIES: 2+ pulses, warm, well-perfused. No cyanosis. Cap refill <2 seconds. No peripheral edema. LOWER EXTREMITIES: 2+ pulses, warm, well-perfused. No calf tenderness. No peripheral edema. NEUROLOGICAL: Normal speech, gait not observed. PSYCH: Cooperative. Good eye contact. Appropriate mood and affect. SKIN: Warm, dry, normal turgor, no rashes or lesions noted. Vital Signs Temperature 98 F 11/15/18 08:53 Pulse Rate 100 H 11/15/18 10:09 Respiratory Rate 20 11/15/18 08:53 Blood Pressure 133/85 11/15/18 10:09 O2 Sat by Pulse Oximetry (%) 98 11/15/18 02:00 Lab Results WBC 12.6 K/mm3 (4.0-10.0) H 11/14/18 06:43 RBC 5.41 M/mm3 (4.00-5.60) 11/14/18 06:43 Hgb 15.5 GM/dL (11.7-16.9) 11/14/18 06:43 Hct 46.5 % (35.4-49) 11/14/18 06:43 MCV 86.0 fl (80-96) 11/14/18 06:43 MCHC 33.4 g/dl (32.0-35.9) 11/14/18 06:43 RDW 14.2 % (11.9-15.9) 11/14/18 06:43 Plt Count 222 K/MM3 (134-434) 11/14/18 06:43 Sodium 145 mmol/L (136-145) 11/15/18 11:55 Potassium 3.6 mmol/L (3.5-5.1) 11/15/18 11:55 Chloride 111 mmol/L (98-107) H 11/15/18 11:55 Carbon Dioxide 25 mmol/L (21-32) 11/15/18 11:55 Anion Gap 9 MMOL/L (8-16) 11/15/18 11:55 BUN 57.2 mg/dL (7-18) H 11/15/18 11:55 Creatinine 2.1 mg/dL (0.55-1.3) H 11/15/18 11:55 Random Glucose 219 mg/dL (74-106) H 11/15/18 11:55 Calcium 8.4 mg/dL (8.5-10.1) L 11/15/18 11:55 INR 1.09 (0.83-1.09) 11/14/18 00:00 Carotid doppler images reviewed. PSV/EDV all normal. No need for any surgery Malik Koehler DO
--- NOTE | 2018-11-15 10:41 | PN ---
Physical Exam: SUBJECTIVE: Patient seen and examined at the bedside. OBJECTIVE: Patient is a 63 year old male with a significant past medical history of hypertension, hld who was brought into the ED on 11/14/2018 via EMS after being found down in his apartment. He has been reportedly on the floor for apx 5 days. He was found to have a non hemorrhagic right basal ganglia striacap infarct and an elevated CPK on admission. His troponins were also elevated. on exam, noted to have belly breathing, accessory muscle use on supplemental oxygen. repeat chest xray and lower the IVF. imaging: echo: poor lv compliance, trace to mild mitral regurg. carotid doppler: small to mod size soft plaques 50-69% stenosis head ct: recent prom. non hemorrhagic right basal ganglia straicapsular infarct involving caudate nucleus Vital Signs Period Temp Pulse Resp BP Sys/Gibson Pulse Ox Last 24 Hr 97.6 F-98.7 F 90-109 18-97 133-187/72-129 98-100 GENERAL: slurred speech. Awake, alert, and fully oriented, HEAD: Normal with no signs of trauma EYES: PERRL, extraocular movements intact, sclera anicteric, conjunctiva clear. No ptosis. ENT: Ears normal, nares patent, oropharynx clear without exudates NECK: Trachea midline, full range of motion, supple. LUNGS: diminished bilaterally with accessory muscle use. HEART: Regular rate and rhythm, ekg monitor tech: shows sinus rhythm, with PVCs. controlled rate MUSCULOSKELETAL: unable to move left arm. No bony deformities or tenderness, no step offs appreciated on the spine. No CVA tenderness. ABDOMEN: Soft, nontender, nondistended EXTREMITIES: left wallis 1 cm circular wound no active bleeding or drainage. NEUROLOGICAL: gait not observed. left sided weakness, left facial droop PSYCH: Normal mood, normal affect. Laboratory Results - last 24 hr 11/14/18 11/14/18 11/14/18 11:52 12:20 13:11 POC Glucometer 227 186 Creatine Kinase 1738 H Creatine Kinase Index 0.7 CK-MB (CK-2) 13.0 H Troponin I 3.22 H* 11/14/18 11/15/18 11/15/18 17:15 05:47 09:38 POC Glucometer 179 140 159 Creatine Kinase Creatine Kinase Index CK-MB (CK-2) Troponin I Active Medications Generic Name Dose Route Start Last Admin Trade Name Freq PRN Reason Stop Dose Admin Aspirin 81 mg 11/14/18 10:00 11/15/18 09:39 Ecotrin - PO 81 mg DAILY SHARON Administration Atorvastatin Calcium 80 mg 11/14/18 22:00 11/14/18 23:50 Lipitor - PO 80 mg HS SHARON Administration Heparin Sodium (Porcine) 5,000 unit 11/14/18 06:00 11/15/18 05:51 Heparin - SQ 5,000 unit TID SHARON Administration Hydralazine HCl 10 mg 11/14/18 11:58 11/15/18 01:27 Apresoline Injection - IVPUSH 10 mg Q6H PRN Administration HYPERTENSION Sodium Chloride 1,000 mls @ 150 mls/hr 11/14/18 04:15 11/15/18 05:51 Normal Saline - IV 150 mls/hr ASDIR SHARON Administration Insulin Aspart 1 vial 11/14/18 04:15 11/15/18 09:40 Novolog Vial Sliding Scale - SQ 2 unit Q6H SHARON Administration Protocol ASSESSMENT/PLAN: Problem List - Problems (1) CVA (cerebral vascular accident) Assessment/Plan: head ct head showed right basal ganglia ischemic lesion. MRI of brain confirmed stroke and carotid u/s with 50-69% percent stenosis. seen by vascular and no interventions currently planned. on lipitor 80, asa 81. initiated PT, swallow eval completed and diet adjusted/ downgraded for high risk of aspiration. for MBS monitor on tele Code(s): I63.9 - CEREBRAL INFARCTION, UNSPECIFIED Qualifiers: Laterality of affected vessel: left (2) Hypertension Assessment/Plan: elevated in the setting on recent stroke start on metoprolol 25 xl and monitor. Code(s): I10 - ESSENTIAL (PRIMARY) HYPERTENSION (3) ESPINOZA (acute kidney injury) Assessment/Plan: worsening espinoza. fluids d/c secondary to volume overload and accessory muscle use increased congestion on chest xray bhakta draining dark krystal urine also has rhabdo renal consulted Code(s): N17.9 - ACUTE KIDNEY FAILURE, UNSPECIFIED (4) Rhabdomyolysis Assessment/Plan: improving daily cpk Code(s): M62.82 - RHABDOMYOLYSIS (5) Elevated troponin Assessment/Plan: troponin 3.22 > 1.09 EKG 11/14/18, left atrial enlargement, RBBB, LVH, LAD Echo11/14/18: Normal LV size and function, abnormal diastolic relaxation. continue metoprolol, asa cardiology following Code(s): R79.89 - OTHER SPECIFIED ABNORMAL FINDINGS OF BLOOD CHEMISTRY (6) Prophylactic measure Assessment/Plan: heparin physical therapy bowel regimen full code Code(s): Z29.9 - ENCOUNTER FOR PROPHYLACTIC MEASURES, UNSPECIFIED Visit type - Emergency Visit Emergency Visit: Yes ED Registration Date: 11/14/18 Care time: The patient presented to the Emergency Department on the above date and was hospitalized for further evaluation of their emergent condition. - New Patient This patient is new to me today: Yes Date on this admission: 11/16/18 - Critical Care Critical Care patient: No - Discharge Referral Referred to [facility] Med P.C.: No
[2018-11-15] MEDS ORDERED: PT OWN MED DRAWER 7, Y5N ONE (10:59)
[2018-11-15] MEDS ORDERED: SODIUM CHLORIDE 1,000 ML IV SCH (11:01)
--- NOTE | 2018-11-15 11:23 | PN ---
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, CATALYTIC CONVERTER OPERATOR - Note 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: Selected Entries 11/14/18 11/14/18 11/15/18 00:06 23:53 00:00 Temperature 97.4 F L 97.6 F 98 F 11/15/18 11/15/18 11/15/18 02:00 06:00 08:53 Temperature 98.7 F 98.5 F 98 F Pt on puree/thin liquid, with occasional cough response on thin liquids. Pt is slow to respond, with impaired ability to establish,maintain eye contact. Upon command, claps mid-air, without awareness of flaccid ue on bed. Able to cross midline with cues and identify hand. Left neglect/hemianopsia/perceptual deficits suspected. Flat affect, suspect impaired insight/memory. Able to name/repeat, slow to initiate speech. Speech mod to severely Dysarthric, with poor (+) intelligibility. Knows he is hospital but not date/age. 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 Swallow quite delayed, reduced in excursion. Pending cxr. Reports difficulty taking deep breath. Suggest downgrade to puree/nectar TL MBS to r/o aspiration, stasis, timeliness of swallow affecting functionality. Suggest [facility]hab when medically stable
[2018-11-15] MEDS: metoPROLOL SUCCINATE 25 MG TAB.SR.24H (FP) PO SCH (12:18)
[2018-11-15 12:38] LABS: ALBUMIN 2.8 g/dl (3.4-5.0); BILIRUBIN,TOTAL 1.2 mg/dL (0.2-1); BLOOD UREA NITROGEN 57.2 mg/dL (7-18); CALCIUM 8.4 mg/dL (8.5-10.1); CREATININE 2.1 mg/dL (0.55-1.3); POTASSIUM 3.6 mmol/L (3.5-5.1); TOT PROT 7.1 g/dl (6.4-8.2)
--- NOTE | 2018-11-15 14:20 | PN ---
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 (short form) - Note 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: cc Left sided hemiparesis HPI 63 year old male history of HTN,HLD,DM, came with left sided hemiparesis. Patient was lying on the floor for five days, when he was found laying on flOOR. Paitent never had stroke, he did have ? cad. Patient had ct head showed right basal ganglia ishcemic lesion. He is waiting for mri. He had speech and passed swallowing evaluation. No new symptoms, mri of brain confirmed stroke and carotid ultrasound unremarkable NEUROLOGICAL EXAMINATION Alert oriented x 2, speech is dysarthric, neck is Supple left sided facial palsy, eomi, left dense hemiparesis ct head right basalganglia infarct, mri confirmed right basal ganglia stroke Assessment/Plan Right mca stroke ( right basal ganglia) risk factor DM,HTN. Patient has nih score of 18, stroke is five days old. Patient passed swallowing test PLAN: continue aspirin and statin vascular surgery consult appreciated - speech consult appreciated - pt dvt prophylaxis Thanking you so much Beau Young MD
--- NOTE | 2018-11-15 14:31 | CONSULT ---
Consult - text type - Consultation Consultation Note: Renal consult for ESPINOZA This is a 63 year old gentleman with history of hypertension and DM type 2 who presented from home with AMS and fall and found to have acute CVA and rhabdo with worsening renal function. Seen and examined at the bedside. Awake and alert but not able to provide a good history. Denies any history of kidney related problems. Denies any stones in the past. BP has been flucating during hospital admission. Has bhakta in place with dark urine. Was taken off IVF for congestion on CXR. PMHx: as above Allergies: NKDA Family Hx: NC Social Hx: No T/A/D ROS: as per HPI, all other pertinent ros negative Vital Signs Temperature 98 F 11/15/18 08:53 Pulse Rate 100 H 11/15/18 10:09 Respiratory Rate 20 11/15/18 08:53 Blood Pressure 133/85 11/15/18 10:09 O2 Sat by Pulse Oximetry (%) 98 11/15/18 02:00 Intake & Output 11/12/18 11/13/18 11/14/18 11/15/18 23:59 23:59 23:59 23:59 Intake Total 1150 Output Total 900 Balance 250 Weight 95.254 kg NAD neck supple no JVD RRR Dec BS, no rales soft NT/ND no LE edema, cyanosis or clubbing CBC, BMP 11/15/18 11:55 Current Medications Aspirin (Ecotrin -) 81 mg PO DAILY [facility] Last Admin: 11/15/18 09:39 Dose: 81 mg Atorvastatin Calcium (Lipitor -) 80 mg PO HS [facility] Last Admin: 11/14/18 23:50 Dose: 80 mg Heparin Sodium (Porcine) (Heparin -) 5,000 unit SQ TID [facility] Last Admin: 11/15/18 05:51 Dose: 5,000 unit Hydralazine HCl (Apresoline Injection -) 10 mg IVPUSH Q6H PRN PRN Reason: HYPERTENSION Last Admin: 11/15/18 13:20 Dose: 10 mg Insulin Aspart (Novolog Vial Sliding Scale -) 1 vial SQ Q6H [facility]; Protocol Last Admin: 11/15/18 09:40 Dose: 2 unit Metoprolol Succinate (Toprol Xl -) 12.5 mg PO DAILY [facility] Last Admin: 11/15/18 12:18 Dose: 12.5 mg 63 year old gentleman with history of hypertension and DM type 2 who presented from home with AMS and fall and found to have acute CVA and rhabdo with worsening renal function. 1. Acute Renal Injury 2. Acute CVA 3. Rhabdomyolysis 4. Hypertension 4. DM type 2 Etiology of ESPINOZA: Pigment injury from rhabdomyosis vs. hemodynamic injury from BP changes vs. ATN Check urine studies for FeNa, UPCR and urine eosinohils Maintain bhakta for now Holding IVF because of chest congestion if pt becomes hypoxic or respiratory status worsens would give IV lasix Check renal US to monitor for any evidence of obstruction or CKD Neurology follow up would consider addition of amlodpine 5mg for for steady blood pressure control Thank you Eusebio Fritz DO
--- NOTE | 2018-11-15 15:11 | CON.CARD ---
Consult Consult Specialty:: Cardiology Reason for Consultation:: positive troponin - History of Present Illness Chief Complaint: fatigue History of Present Illness: This is a 63 year old male with a PMH of HTN, HLD, and DM. He was found on the ground in his apartment. He was believed to be on the ground for at least several days, unable to get up secondary to weakness. No LOC. Head CT showed and age indeterminate infarct. EKG 11/14/18 possible LAE, RBBB, LVH, LAD, and NSSTTW changes. Echocardiogram 11/14/18: Normal LV size and function, abnormal diastolic relaxation. Troponin 11/14/18 3.22 11/15/18 1.09 He denies cardiac symptoms. - Alcohol/Substance Use Hx Alcohol Use: No - Smoking History Smoking history: Unknown if ever smoked Home Medications - Allergies Allergies/Adverse Reactions: Allergies Allergy/AdvReac Type Severity Reaction Status Date / Time No Known Allergies Allergy Verified 11/14/18 00:13 - Home Medications Home Medications: Ambulatory Orders NK [No Known Home Medication] 11/14/18 Vital Signs: Vital Signs Temperature 98 F 11/15/18 08:53 Pulse Rate 100 H 11/15/18 10:09 Respiratory Rate 20 11/15/18 08:53 Blood Pressure 133/85 11/15/18 10:09 O2 Sat by Pulse Oximetry (%) 98 11/15/18 09:00 Constitutional: Yes: No Distress Eyes: Yes: WNL HENT: Yes: WNL Neck: Yes: WNL Respiratory: Yes: CTA Bilaterally Gastrointestinal: Yes: Soft Cardiovascular: Yes: Regular Rate and Rhythm Heart Sounds: Yes: S1, S2 Extremities: Yes: WNL Edema: No Neurological: Yes: Confusion - Other Data Labs, Other Data: CBC, BMP 11/15/18 11:55 INR, PTT INR 1.09 (0.83-1.09) 11/14/18 00:00 Troponin, BNP 11/15/18 11:55 Troponin I 1.04 H* Troponin, BNP 11/15/18 11:55 Troponin I 1.04 H* Stress Echo: Pending (Awke) Assessment/Plan 63 year old male with a PMH of HTN, HLD, and DM. He was found on the ground in his apartment. He was believed to be on the ground for at least several days, unable to get up secondary to weakness. No LOC. Head CT showed and age indeterminate infarct. EKG 11/14/18 possible LAE, RBBB, LVH, LAD, and NSSTTW changes. Echocardiogram 11/14/18: Normal LV size and function, abnormal diastolic relaxation. Troponin 11/14/18 3.22 11/15/18 1.09 He denies cardiac symptoms. Cardiovascular Elevated troponin Level likely secondary to demand ischemia (type 2 [place]) and not an acute coronary syndrome Would wait untill he is fully recovered neurologically and then would assess coronaries (as an outpatient). CPK elevation likely secondary to to being on the ground for a prolonged period of time. Agree with Lipitor/ASA/Metoprolol Can add amlodipine when tighter BP control is needed
[2018-11-15 15:13] LABS: BASO % 0.2 % (0-2.0); EOS % 3.7 % (0-4.5); HEMATOCRIT 41.6 % (35.4-49); HEMOGLOBIN 13.6 GM/dL (11.7-16.9); LYMPH % 10.5 % (8-40); MCH 28.5 pg (25.7-33.7); MCHC 32.8 g/dl (32.0-35.9); MEAN CELL VOLUME 86.8 fl (80-96); MEAN PLT VOLUME 9.4 fl (7.5-11.1); MONO % 6.3 % (3.8-10.2); NEUT % 79.3 % (42.8-82.8); PLATELET COUNT 178 K/MM3 (134-434); RBC 4.79 M/mm3 (4.00-5.60); RDW 14.4 % (11.9-15.9); WHITE BLOOD COUNT 10.7 K/mm3 (4.0-10.0)
[2018-11-15] MEDS: ATORVASTATIN CA 80 MG TABLET (FP) PO SCH (22:46)
[2018-11-16] MEDS: INSULIN SLIDING SCALE (NOVOLOG) 1 VIAL SQ SCH ×4 (06:07→21:26)
[2018-11-16] MEDS: HEPARIN NA (PORCINE) 5,000 UNITS/ML 1ML VIAL SQ SCH ×3 (06:08→21:26)
[2018-11-16] MEDS: hydrALAZINE HCL 20 MG/ML VIAL IVPUSH PRN (06:19)
[2018-11-16] MEDS ORDERED: INSULIN SLIDING SCALE (NOVOLOG) 1 VIAL SQ ONE (07:39)
[2018-11-16 07:40] LABS: ALBUMIN 2.8 g/dl (3.4-5.0); BILIRUBIN,TOTAL 0.8 mg/dL (0.2-1); BLOOD UREA NITROGEN 46.3 mg/dL (7-18); CALCIUM 8.9 mg/dL (8.5-10.1); CREATININE 1.5 mg/dL (0.55-1.3); MAGNESIUM 2.6 mg/dL (1.8-2.4); PHOSPHOROUS 2.8 mg/dL (2.5-4.9); POTASSIUM 3.7 mmol/L (3.5-5.1); TOT PROT 7.2 g/dl (6.4-8.2)
--- NOTE | 2018-11-16 09:51 | PN ---
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: Selected Entries 11/15/18 11/15/18 11/15/18 00:00 02:00 06:00 Breakfast Lunch Supper Temperature 98 F 98.7 F 98.5 F Pulse Rate Respiratory Rate Respiratory Effort 11/15/18 11/15/18 11/15/18 08:53 14:14 18:00 Breakfast 75% Lunch 50% Supper 50% Temperature 98 F Pulse Rate Respiratory Rate Respiratory Effort 11/15/18 11/16/18 11/16/18 22:40 02:00 06:17 Breakfast Lunch Supper Temperature 98.2 F 99.6 F 98.9 F Pulse Rate 102 H 93 H Respiratory 20 18 Rate Respiratory Effort 11/16/18 11/16/18 08:34 08:35 Breakfast Lunch Supper Temperature 98 F Pulse Rate 106 H Respiratory 24 H Rate Respiratory Accessory Effort Muscle Use Laboratory Tests 11/14/18 11/15/18 00:00 11:55 WBC 10.6 H 10.7 H Awake. Using accessory abdominal breathing muscles.Neurologic? Nursing/PNP aware. Lasix ordered. Thin liquids eliminated since the , but sent up and given accidentally this am. No responsive cough. Silent aspiration can not bve r/o at bedside. CXR noted- no infiltrate. Hypoventilated lungs. Trial puree/nectar, but hold PO if SOB.
[2018-11-16] MEDS ORDERED: amLODIPine BESYLATE 2.5 MG TABLET (FP) PO SCH (10:00)
--- NOTE | 2018-11-16 10:27 | PN ---
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 (short form) - Note 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: 63 year old male history of HTN,HLD,DM, came with left sided hemiparesis. Patient was lying on the floor for five days, when he was found laying on flOOR. Paitent never had stroke, he did have ? cad. Patient had ct head showed right basal ganglia ishcemic lesion. He is waiting for mri. He had speech and passed swallowing evaluation. No new symptoms, mri of brain confirmed stroke and carotid ultrasound unremarkable NEUROLOGICAL EXAMINATION Alert oriented x 2, speech is dysarthric, neck is Supple left sided facial palsy, eomi, left dense hemiparesis ct head right basalganglia infarct, mri confirmed right basal ganglia stroke Assessment/Plan Right mca stroke ( right basal ganglia) risk factor DM,HTN. Patient passed swallowing test and on puree diet PLAN: continue aspirin and statin vascular surgery consult appreciated - speech consult appreciated - pt dvt prophylaxis waiting for placement Thanking you so much Beau Young MD
[2018-11-16] MEDS ORDERED: FUROSEMIDE 40 MG/4 ML INJECTABLE VIAL IVPUSH ONE (10:30)
[2018-11-16] MEDS: amLODIPine BESYLATE 5 MG TABLET (FP) PO SCH (10:36)
[2018-11-16] MEDS: ASPIRIN COATED 81 MG TABLET.EC PO SCH (10:36)
[2018-11-16] MEDS: metoPROLOL SUCCINATE 25 MG TAB.SR.24H (FP) PO SCH (10:36)
--- NOTE | 2018-11-16 11:18 | PN ---
Physical Exam: SUBJECTIVE: Patient seen and examined at the bedside. denies any pain. speech is more comprehensible now. OBJECTIVE: Patient is a 63 year old male with a significant past medical history of hypertension, hld who was brought into the ED on 11/14/2018 via EMS after being found down in his apartment. He has been reportedly on the floor for apx 5 days. He was found to have a non hemorrhagic right basal ganglia striacap infarct and an elevated CPK on admission. His troponins were also elevated. Chest xray 11/15 showed increased congestion and IVF were stopped. He continues to require supplemental oxygen for accessory muscle use. Will give lasix 40m x now and monitor output. Wean off oxygen as tolerated. will send for lower ext doppler. Vital Signs Period Temp Pulse Resp BP Sys/Gibson Pulse Ox Last 24 Hr 98 F-99.6 F 92-114 18-24 148-208/87-117 94-97 GENERAL: slurred speech but now more comprehensible. Awake, alert, and fully oriented, withdrawn. HEAD: Normal with no signs of trauma EYES: PERRL, extraocular movements intact, sclera anicteric, conjunctiva clear. No ptosis. ENT: Ears normal, nares patent, oropharynx clear without exudates NECK: Trachea midline, full range of motion, supple. LUNGS: diminished bilaterally with accessory muscle use. on 2 liters HEART: Regular rate and rhythm, case monitor: shows tachycardia 108, ekg: sinus rhythm, with PVCs. controlled rate MUSCULOSKELETAL: unable to move left arm. No bony deformities or tenderness, no step offs appreciated on the spine. No CVA tenderness. ABDOMEN: Soft, nontender, nondistended EXTREMITIES: left wallis 1 cm circular wound no active bleeding or drainage. lower ext trace edema (left > right), will doppler. NEUROLOGICAL: gait not observed. left sided weakness, left facial droop PSYCH: Normal mood, normal affect. Laboratory Results - last 24 hr 11/15/18 11/15/18 11/15/18 11:55 11:55 11:55 WBC 10.7 H RBC 4.79 Hgb 13.6 Hct 41.6 MCV 86.8 MCH 28.5 MCHC 32.8 RDW 14.4 Plt Count 178 MPV 9.4 Absolute Neuts (auto) 8.5 H Neutrophils % 79.3 Lymphocytes % 10.5 D Monocytes % 6.3 Eosinophils % 3.7 D Basophils % 0.2 Nucleated RBC % 0 Sodium 145 Potassium 3.6 Chloride 111 H Carbon Dioxide 25 Anion Gap 9 BUN 57.2 H Creatinine 2.1 H Est GFR (CKD-EPI)AfAm 37.16 Est GFR (CKD-EPI)NonAf 32.07 POC Glucometer Random Glucose 219 H Calcium 8.4 L Phosphorus Magnesium Total Bilirubin 1.2 H AST 31 ALT 19 Alkaline Phosphatase 85 Creatine Kinase 895 H 895 H Creatine Kinase Index 0.4 0.4 CK-MB (CK-2) 4.3 H 4.2 H Troponin I 1.04 H* Total Protein 7.1 Albumin 2.8 L Ur Random Creatinine U Random Total Protein Ur Random Sodium Urine Creatinine Protein/Creatinin Ratio 11/15/18 11/15/18 11/15/18 17:15 20:00 20:00 WBC RBC Hgb Hct MCV MCH MCHC RDW Plt Count MPV Absolute Neuts (auto) Neutrophils % Lymphocytes % Monocytes % Eosinophils % Basophils % Nucleated RBC % Sodium Potassium Chloride Carbon Dioxide Anion Gap BUN Creatinine Est GFR (CKD-EPI)AfAm Est GFR (CKD-EPI)NonAf POC Glucometer 203 Random Glucose Calcium Phosphorus Magnesium Total Bilirubin AST ALT Alkaline Phosphatase Creatine Kinase Creatine Kinase Index CK-MB (CK-2) Troponin I Total Protein Albumin Ur Random Creatinine 161.0 H U Random Total Protein 90.5 H Ur Random Sodium 51 Urine Creatinine 161.0 Protein/Creatinin Ratio 0.6 11/15/18 11/16/18 11/16/18 22:49 06:07 06:08 WBC RBC Hgb Hct MCV MCH MCHC RDW Plt Count MPV Absolute Neuts (auto) Neutrophils % Lymphocytes % Monocytes % Eosinophils % Basophils % Nucleated RBC % Sodium 146 H Potassium 3.7 Chloride 112 H Carbon Dioxide 26 Anion Gap 8 BUN 46.3 H Creatinine 1.5 H Est GFR (CKD-EPI)AfAm 55.82 Est GFR (CKD-EPI)NonAf 48.16 POC Glucometer 197 173 Random Glucose 176 H Calcium 8.9 Phosphorus 2.8 Magnesium 2.6 H Total Bilirubin 0.8 AST 25 ALT 18 Alkaline Phosphatase 83 Creatine Kinase 558 H Creatine Kinase Index 0.3 CK-MB (CK-2) 1.8 Troponin I Total Protein 7.2 Albumin 2.8 L Ur Random Creatinine U Random Total Protein Ur Random Sodium Urine Creatinine Protein/Creatinin Ratio 11/16/18 10:41 WBC RBC Hgb Hct MCV MCH MCHC RDW Plt Count MPV Absolute Neuts (auto) Neutrophils % Lymphocytes % Monocytes % Eosinophils % Basophils % Nucleated RBC % Sodium Potassium Chloride Carbon Dioxide Anion Gap BUN Creatinine Est GFR (CKD-EPI)AfAm Est GFR (CKD-EPI)NonAf POC Glucometer 261 Random Glucose Calcium Phosphorus Magnesium Total Bilirubin AST ALT Alkaline Phosphatase Creatine Kinase Creatine Kinase Index CK-MB (CK-2) Troponin I Total Protein Albumin Ur Random Creatinine U Random Total Protein Ur Random Sodium Urine Creatinine Protein/Creatinin Ratio Active Medications Generic Name Dose Route Start Last Admin Trade Name Freq PRN Reason Stop Dose Admin Amlodipine Besylate 5 mg 11/16/18 10:00 11/16/18 10:36 Norvasc - PO 5 mg DAILY [facility] Administration Aspirin 81 mg 11/14/18 10:00 11/16/18 10:36 Ecotrin - PO 81 mg DAILY [facility] Administration Atorvastatin Calcium 80 mg 11/14/18 22:00 11/15/18 22:46 Lipitor - PO 80 mg HS [facility] Administration Heparin Sodium (Porcine) 5,000 unit 11/14/18 06:00 11/16/18 06:08 Heparin - SQ 5,000 unit TID [facility] Administration Hydralazine HCl 10 mg 11/14/18 11:58 11/16/18 06:19 Apresoline Injection - IVPUSH 10 mg Q6H PRN Administration HYPERTENSION Insulin Aspart 1 vial 11/14/18 04:15 11/16/18 10:42 Novolog Vial Sliding Scale - SQ 4 unit Q6H [facility] Administration Protocol Metoprolol Succinate 12.5 mg 11/15/18 11:00 11/16/18 10:36 Toprol Xl - PO 12.5 mg DAILY [facility] Administration ASSESSMENT/PLAN: Problem List - Problems (1) CVA (cerebral vascular accident) Assessment/Plan: head ct head showed right basal ganglia ischemic lesion. MRI of brain confirmed stroke and carotid u/s with 50-69% percent stenosis. seen by vascular and no interventions currently planned. on lipitor 80, asa 81. initiated PT, swallow eval completed and diet adjusted/ downgraded for high risk of aspiration. for [facility] monitor on tele discharge planning to rehab initiated by Code(s): I63.9 - CEREBRAL INFARCTION, UNSPECIFIED Qualifiers: Laterality of affected vessel: left (2) Hypertension Assessment/Plan: elevated in the setting on recent stroke start on metoprolol 25 xl and norvasc 5 added for better control will stop hydralazine Code(s): I10 - ESSENTIAL (PRIMARY) HYPERTENSION (3) ESPINOZA (acute kidney injury) Assessment/Plan: fluids d/c secondary to volume overload and accessory muscle use increased congestion on chest xray bhakta draining dark krystal urine also has rhabdo renal consulted and following u/s of kidneys unremarkable per report. Code(s): N17.9 - ACUTE KIDNEY FAILURE, UNSPECIFIED (4) Rhabdomyolysis Assessment/Plan: improving daily cpk awaiting todays CPK Code(s): M62.82 - RHABDOMYOLYSIS (5) Elevated troponin Assessment/Plan: troponin 3.22 > 1.09 EKG 11/14/18, left atrial enlargement, RBBB, LVH, LAD Echo11/14/18: Normal LV size and function, abnormal diastolic relaxation. continue metoprolol, asa cardiology following Code(s): R79.89 - OTHER SPECIFIED ABNORMAL FINDINGS OF BLOOD CHEMISTRY (6) Prophylactic measure Assessment/Plan: heparin physical therapy bowel regimen discharge to rehab/planning full code Code(s): Z29.9 - ENCOUNTER FOR PROPHYLACTIC MEASURES, UNSPECIFIED Visit type - Emergency Visit Emergency Visit: Yes ED Registration Date: 11/14/18 Care time: The patient presented to the Emergency Department on the above date and was hospitalized for further evaluation of their emergent condition. - New Patient This patient is new to me today: No - Critical Care Critical Care patient: No - Discharge Referral Referred to [facility] Med P.C.: No
--- NOTE | 2018-11-16 14:30 | PN ---
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, Physician Chief Complaint: No New complaints History of Present Illness: This is a 63 year old male with a PMH of HTN, HLD, and DM. He was found on the ground in his apartment. He was believed to be on the ground for at least several days, unable to get up secondary to weakness. No LOC. Head CT showed and age indeterminate infarct. EKG 11/14/18 possible LAE, RBBB, LVH, LAD, and NSSTTW changes. Echocardiogram 11/14/18: Normal LV size and function, abnormal diastolic relaxation. Troponin 11/14/18 3.22 11/15/18 1.09 He denies cardiac symptoms. - Current Medication List Current Medications: Active Medications Amlodipine Besylate (Norvasc -) 5 mg PO DAILY [facility] Last Admin: 11/16/18 10:36 Dose: 5 mg Aspirin (Ecotrin -) 81 mg PO DAILY [facility] Last Admin: 11/16/18 10:36 Dose: 81 mg Atorvastatin Calcium (Lipitor -) 80 mg PO HS [facility] Last Admin: 11/15/18 22:46 Dose: 80 mg Heparin Sodium (Porcine) (Heparin -) 5,000 unit SQ TID [facility] Last Admin: 11/16/18 06:08 Dose: 5,000 unit Insulin Aspart (Novolog Vial Sliding Scale -) 1 vial SQ Q6H [facility]; Protocol Last Admin: 11/16/18 10:42 Dose: 4 unit Metoprolol Succinate (Toprol Xl -) 12.5 mg PO DAILY [facility] Last Admin: 11/16/18 10:36 Dose: 12.5 mg - Objective Vital Signs: Vital Signs Temperature 98 F 11/16/18 08:34 Pulse Rate 106 H 11/16/18 08:34 Respiratory Rate 24 H 11/16/18 08:34 Blood Pressure 148/91 11/16/18 08:34 O2 Sat by Pulse Oximetry (%) 94 L 11/16/18 08:35 Constitutional: Yes: No Distress HENT: Yes: WNL Neck: Yes: WNL Cardiovascular: Yes: Regular Rate and Rhythm, S1, S2 Respiratory: Yes: CTA Bilaterally Gastrointestinal: Yes: Soft Edema: No Neurological: Yes: Alert, Oriented (Sleepy) Labs: CBC, BMP 11/15/18 11:55 11/16/18 06:08 INR, PTT INR 1.09 (0.83-1.09) 11/14/18 00:00 Assessment/Plan 63 year old male with a PMH of HTN, HLD, and DM. He was found on the ground in his apartment. He was believed to be on the ground for at least several days, unable to get up secondary to weakness. No LOC. Head CT showed and age indeterminate infarct. EKG 11/14/18 possible LAE, RBBB, LVH, LAD, and NSSTTW changes. Echocardiogram 11/14/18: Normal LV size and function, abnormal diastolic relaxation. Troponin 11/14/18 3.22 11/15/18 1.09 He denies cardiac symptoms. Cardiovascular Elevated troponin Level likely secondary to demand ischemia (type 2 [place]) and not an acute coronary syndrome Would wait untill he is fully recovered neurologically and then would assess coronaries (as an outpatient). CPK elevation likely secondary to to being on the ground for a prolonged period of time. Agree with Lipitor/ASA/Metoprolol Agree with amlodipine 5 mg po daily Out patient Cardiology follow up
--- NOTE | 2018-11-16 14:38 | PN ---
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 (short form) - Note 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: Renal follow up for ESPINOZA Seen and examined at the bedside awake and alert offers no acute complaints denies any shortness of breath but was noted to be be dyspnic this am making urine Vital Signs Temperature 98 F 11/16/18 08:34 Pulse Rate 106 H 11/16/18 08:34 Respiratory Rate 24 H 11/16/18 08:34 Blood Pressure 148/91 11/16/18 08:34 O2 Sat by Pulse Oximetry (%) 94 L 11/16/18 08:35 Intake & Output 11/13/18 11/14/18 11/15/18 11/16/18 23:59 23:59 23:59 23:59 Intake Total 2175 50 Output Total 1700 400 Balance 475 -350 Weight 95.254 kg 95.254 kg NAD awake and alert neck supple RRR CTA soft NT/ND no LE edema CBC, BMP 11/15/18 11:55 11/16/18 06:08 Current Medications Amlodipine Besylate (Norvasc -) 5 mg PO DAILY [facility] Last Admin: 11/16/18 10:36 Dose: 5 mg Aspirin (Ecotrin -) 81 mg PO DAILY [facility] Last Admin: 11/16/18 10:36 Dose: 81 mg Atorvastatin Calcium (Lipitor -) 80 mg PO HS [facility] Last Admin: 11/15/18 22:46 Dose: 80 mg Heparin Sodium (Porcine) (Heparin -) 5,000 unit SQ TID [facility] Last Admin: 11/16/18 06:08 Dose: 5,000 unit Insulin Aspart (Novolog Vial Sliding Scale -) 1 vial SQ Q6H [facility]; Protocol Last Admin: 11/16/18 10:42 Dose: 4 unit Metoprolol Succinate (Toprol Xl -) 12.5 mg PO DAILY [facility] Last Admin: 11/16/18 10:36 Dose: 12.5 mg 63 year old gentleman with history of hypertension and DM type 2 who presented from home with AMS and fall and found to have acute CVA and rhabdo with worsening renal function. 1. Acute Renal Injury likely due to pigment injury from rhabdomyolysis vs. transient renal hypoprofusion 2. Acute CVA 3. Rhabdomyolysis 4. Hypertension 4. DM type 2 Renal function improving Urine studies show FeNa of 0.5% indicating preserved tubular function however this can be seen in pigment mediated injury Renal US showed no obstruction or stones. CK now improved to ~500 off IVF because of chest congestion, can give Lasix IV as needed Trend renal function and electrolytes daily can consider addition of ACEi once renal function stable Neurology follow up Thank you Eusebio Fritz DO
[2018-11-16] MEDS: ATORVASTATIN CA 80 MG TABLET (FP) PO SCH (21:26)
[2018-11-17] MEDS: INSULIN SLIDING SCALE (NOVOLOG) 1 VIAL SQ SCH ×4 (05:27→21:27)
[2018-11-17] MEDS: HEPARIN NA (PORCINE) 5,000 UNITS/ML 1ML VIAL SQ SCH ×3 (05:27→21:19)
[2018-11-17 06:42] LABS: BASO % 0.2 % (0-2.0); EOS % 3.7 % (0-4.5); HEMATOCRIT 38.4 % (35.4-49); HEMOGLOBIN 12.7 GM/dL (11.7-16.9); LYMPH % 13.5 % (8-40); MCH 28.4 pg (25.7-33.7); MEAN CELL VOLUME 86.1 fl (80-96); MEAN PLT VOLUME 8.9 fl (7.5-11.1); MONO % 5.7 % (3.8-10.2); NEUT % 76.9 % (42.8-82.8); PLATELET COUNT 174 K/MM3 (134-434); RBC 4.46 M/mm3 (4.00-5.60); RDW 14.5 % (11.9-15.9)
[2018-11-17 06:59] LABS: ALBUMIN 2.6 g/dl (3.4-5.0); BILIRUBIN,TOTAL 0.7 mg/dL (0.2-1); BLOOD UREA NITROGEN 46.6 mg/dL (7-18); CALCIUM 8.5 mg/dL (8.5-10.1); CREATININE 1.7 mg/dL (0.55-1.3); MAGNESIUM 2.5 mg/dL (1.8-2.4); POTASSIUM 3.8 mmol/L (3.5-5.1); TOT PROT 6.9 g/dl (6.4-8.2)
[2018-11-17] MEDS: ASPIRIN COATED 81 MG TABLET.EC PO SCH (10:44)
[2018-11-17] MEDS: metoPROLOL SUCCINATE 25 MG TAB.SR.24H (FP) PO SCH (10:44)
[2018-11-17] MEDS: amLODIPine BESYLATE 5 MG TABLET (FP) PO SCH ×2 (10:44→14:55)
--- NOTE | 2018-11-17 11:48 | PN ---
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 (short form) - Note 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: 63 year old male history of HTN,HLD,DM, came with left sided hemiparesis. Patient was lying on the floor for five days, when he was found laying on flOOR. Paitent never had stroke, he did have ? cad. Patient had ct head showed right basal ganglia ishcemic lesion. He is waiting for mri. He had speech and passed swallowing evaluation. No new symptoms, mri of brain confirmed stroke and carotid ultrasound unremarkable NEUROLOGICAL EXAMINATION Alert oriented x 2, speech is dysarthric, neck is Supple left sided facial palsy, eomi, left dense hemiparesis ct head right basal ganglia infarct, mri confirmed right basal ganglia stroke Assessment/Plan Right mca stroke ( right basal ganglia) risk factor DM,HTN. Patient passed swallowing test and on puree diet PLAN: continue aspirin and statin PT and waiting for placement waiting for placement Thanking you so much Beau Young MD
--- NOTE | 2018-11-17 13:29 | PN ---
Physical Exam: SUBJECTIVE: Patient seen and examined; no new complaints. Likely ehab on monday. No issues brought to my attention from nursing. Hemodynamics stable but high normal HR; afebrile with 99.5 TMAX. Continue to monitor on medicine service. Off IVF and may give PRN lasix as needed; renal function plateaued. No new neuro complaints, making urine. 10 sys ROS done and negative aside from above. OBJECTIVE: Vital Signs Period Temp Pulse Resp BP Sys/Gibson Pulse Ox Last 24 Hr 98.0 F-99.5 F 91-109 18-20 151-177/76-98 95-96 GENERAL: The patient is awake, alert, and fully oriented, in no acute distress. HEAD: Normal with no signs of trauma. EYES: PERRL, extraocular movements intact, sclera anicteric, conjunctiva clear. No ptosis. ENT: Ears normal, nares patent, oropharynx clear without exudates, moist mucous membranes. NECK: Trachea midline, full range of motion, supple. LUNGS: Breath sounds equal, clear to auscultation bilaterally, no wheezes, no crackles, no accessory muscle use. HEART: Regular rate and rhythm, S1, S2 without murmur, rub or gallop. ABDOMEN: Soft, nontender, nondistended, normoactive bowel sounds, no guarding, no rebound, no hepatosplenomegaly, no masses. EXTREMITIES: 2+ pulses, warm, well-perfused, no edema. NEUROLOGICAL: Cranial nerves II through XII grossly intact. Normal speech, gait not observed. PSYCH: Normal mood, normal affect. SKIN: Warm, dry, normal turgor, no rashes or lesions noted Laboratory Results - last 24 hr 11/14/18 11/16/18 11/16/18 11:30 16:10 21:25 WBC RBC Hgb Hct MCV MCH MCHC RDW Plt Count MPV Absolute Neuts (auto) Neutrophils % Lymphocytes % Monocytes % Eosinophils % Basophils % Nucleated RBC % Sodium Potassium Chloride Carbon Dioxide Anion Gap BUN Creatinine Est GFR (CKD-EPI)AfAm Est GFR (CKD-EPI)NonAf POC Glucometer 218 261 Random Glucose Calcium Magnesium Total Bilirubin AST ALT Alkaline Phosphatase Total Protein Albumin Urine Myoglobin 68 H 11/17/18 11/17/18 11/17/18 05:26 06:00 06:00 WBC 11.0 H RBC 4.46 Hgb 12.7 Hct 38.4 MCV 86.1 MCH 28.4 MCHC 33.0 RDW 14.5 Plt Count 174 MPV 8.9 Absolute Neuts (auto) 8.5 H Neutrophils % 76.9 Lymphocytes % 13.5 D Monocytes % 5.7 Eosinophils % 3.7 Basophils % 0.2 Nucleated RBC % 0 Sodium 148 H Potassium 3.8 Chloride 115 H Carbon Dioxide 29 Anion Gap 4 L BUN 46.6 H Creatinine 1.7 H Est GFR (CKD-EPI)AfAm 47.98 Est GFR (CKD-EPI)NonAf 41.40 POC Glucometer 146 Random Glucose 160 H Calcium 8.5 Magnesium 2.5 H Total Bilirubin 0.7 AST 17 ALT 16 Alkaline Phosphatase 75 Total Protein 6.9 Albumin 2.6 L Urine Myoglobin 11/17/18 12:20 WBC RBC Hgb Hct MCV MCH MCHC RDW Plt Count MPV Absolute Neuts (auto) Neutrophils % Lymphocytes % Monocytes % Eosinophils % Basophils % Nucleated RBC % Sodium Potassium Chloride Carbon Dioxide Anion Gap BUN Creatinine Est GFR (CKD-EPI)AfAm Est GFR (CKD-EPI)NonAf POC Glucometer 224 Random Glucose Calcium Magnesium Total Bilirubin AST ALT Alkaline Phosphatase Total Protein Albumin Urine Myoglobin Active Medications Generic Name Dose Route Start Last Admin Trade Name Freq PRN Reason Stop Dose Admin Amlodipine Besylate 5 mg 11/16/18 10:00 11/17/18 10:44 Norvasc - PO 5 mg DAILY [facility] Administration Aspirin 81 mg 11/14/18 10:00 11/17/18 10:44 Ecotrin - PO 81 mg DAILY [facility] Administration Atorvastatin Calcium 80 mg 11/14/18 22:00 11/16/18 21:26 Lipitor - PO 80 mg HS [facility] Administration Heparin Sodium (Porcine) 5,000 unit 11/14/18 06:00 11/17/18 05:27 Heparin - SQ 5,000 unit TID [facility] Administration Insulin Aspart 1 vial 11/14/18 04:15 11/17/18 12:22 Novolog Vial Sliding Scale - SQ 2 unit Q6H [facility] Administration Protocol Metoprolol Succinate 12.5 mg 11/15/18 11:00 11/17/18 10:44 Toprol Xl - PO 12.5 mg DAILY [facility] Administration ASSESSMENT/PLAN: Patient presents with MRI-confirmed CVA with history of HTN, HLF. He is on ASA and high-intensity statin with no developing new focal deficits. head ct head showed right basal ganglia ischemic lesion. MRI of brain confirmed stroke and carotid u/s with 50-69% percent stenosis. seen by vascular and no interventions currently planned. -Acute CVA (Confirmed on MRI, R-basal ganglia ischemic lesion on MRI. Focusing on risk factor mitigation with lipitor and antiplatelets. Swallow eval noted and aspiration risk appreciated. MBS. Will need rehab due to notable deficits impacting underlying functional status necessitating ongoing rehabilitation; PT eval noted). -Carotid A. 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 Referring to podiatry as OP). -ESPINOZA on likely CKD (Underlying CKD likely 2/2 HTN, DM. Overall ESPINOZA is due to dye and hypoperfusion giving rise to ATN picture with 0.5% FeNa noted on initial urines. Cr has plateaued. He recieved a good deal of fluids and was noted to have congestion on his CXR-lasix OK with nephrology.) -Likely D-CHF (NYHA ~1 baseline) with underlying E/A reversal noted on echo; will defer to cardiology and encourage OP followup. Cr slightly increased today after the lasix IV so holding further diuresis. Monitor is and os and continue to assess need QD. Will need to address is needs daily dosing prior to DC. No reduced LVEF so no need for GDMT with evidence-based BB, TAD, etc. etc. -RBBB (known, apprecited on EKG) -Rhabdo (2/2 being found down, per nephro. CK down-resolved. Consider rechecking CK if worsening of renal function) All questions answered 30 minutes spent in the care of this patient with at least 50% of the time face- to-face with counseling, etc. Full Code Visit type - Emergency Visit Emergency Visit: Yes ED Registration Date: 11/14/18 Care time: The patient presented to the Emergency Department on the above date and was hospitalized for further evaluation of their emergent condition. - New Patient This patient is new to me today: Yes Date on this admission: 11/17/18 - Critical Care Critical Care patient: No
[2018-11-17] MEDS ORDERED: METOPROLOL TARTRATE 25 MG TABLET (FP) PO ONE (18:03)
[2018-11-17] MEDS ORDERED: amLODIPine BESYLATE 5 MG TABLET (FP) PO ONE (18:04)
--- NOTE | 2018-11-17 18:19 | PN ---
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 (short form) - Note 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: covering dr scherer problems 63 year old gentleman with history of hypertension and DM type 2 who presented from home with AMS and fall and found to have acute CVA and rhabdo with worsening renal function. 1. Acute Renal Injury likely due to pigment injury from rhabdomyolysis vs. transient renal hypoprofusion 2. Acute CVA 3. Rhabdomyolysis 4. Hypertension 4. DM type 2 Renal function improving Urine studies show FeNa of 0.5% indicating preserved tubular function however this can be seen in pigment mediated injury Renal US showed no obstruction or stones. CK now improved to ~500 off IVF because of chest congestion, can give Lasix IV as needed Trend renal function and electrolytes daily can consider addition of ACEi once renal function stable Neurology follow up Active Medications Amlodipine Besylate (Norvasc -) 10 mg PO DAILY [facility] Last Admin: 11/17/18 14:55 Dose: 10 mg Aspirin (Ecotrin -) 81 mg PO DAILY [facility] Last Admin: 11/17/18 10:44 Dose: 81 mg Atorvastatin Calcium (Lipitor -) 80 mg PO HS [facility] Last Admin: 11/16/18 21:26 Dose: 80 mg Heparin Sodium (Porcine) (Heparin -) 5,000 unit SQ TID [facility] Last Admin: 11/17/18 14:55 Dose: 5,000 unit Insulin Aspart (Novolog Vial Sliding Scale -) 1 vial SQ Q6H [facility]; Protocol Last Admin: 11/17/18 16:47 Dose: 1 unit Metoprolol Succinate (Toprol Xl -) 25 mg PO DAILY [facility] Last Vital Signs Temp Pulse Resp BP Pulse Ox 100.4 F H 99 H 20 153/90 96 11/17/18 14:00 11/17/18 14:00 11/17/18 14:00 11/17/18 14:00 11/17/18 10:00 CBC, BMP 11/17/18 06:00 11/17/18 06:00
[2018-11-17] MEDS: ATORVASTATIN CA 80 MG TABLET (FP) PO SCH (21:19)
[2018-11-18] MEDS: INSULIN SLIDING SCALE (NOVOLOG) 1 VIAL SQ SCH ×4 (05:28→21:21)
[2018-11-18] MEDS: HEPARIN NA (PORCINE) 5,000 UNITS/ML 1ML VIAL SQ SCH ×3 (05:28→21:21)
[2018-11-18] MEDS: metoPROLOL SUCCINATE 25 MG TAB.SR.24H (FP) PO SCH (10:32)
[2018-11-18] MEDS: amLODIPine BESYLATE 5 MG TABLET (FP) PO SCH (10:32)
[2018-11-18] MEDS: ASPIRIN COATED 81 MG TABLET.EC PO SCH (10:32)
--- NOTE | 2018-11-18 11:13 | PN ---
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 (short form) - Note 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: 63 year old male history of HTN,HLD,DM, came with left sided hemiparesis. Patient was lying on the floor for five days, when he was found laying on flOOR. Paitent never had stroke, he did have ? cad. Patient had ct head showed right basal ganglia ishcemic lesion. He is waiting for mri. He had speech and passed swallowing evaluation. mri of brain confirmed stroke and carotid ultrasound unremarkable Feeling ok, no new symptoms NEUROLOGICAL EXAMINATION Alert oriented x 2, speech is dysarthric, neck is Supple left sided facial palsy, eomi, left dense hemiparesis ct head right basal ganglia infarct, mri confirmed right basal ganglia stroke Assessment/Plan Right mca stroke ( right basal ganglia) risk factor DM,HTN. Patient passed swallowing test and on puree diet PLAN: continue aspirin and statin PT and waiting for placement waiting for placement Thanking you so much Beau Young MD
--- NOTE | 2018-11-18 12:27 | PN ---
Physical Exam: SUBJECTIVE: Patient seen and examined; no new complaints. Likely ehab on monday. No issues brought to my attention from nursing. Hemodynamics stable but high normal HR; afebrile with 99.5 TMAX. Continue to monitor on medicine service. Off IVF and may give PRN lasix as needed; renal function plateaued. No new neuro complaints, making urine. 10 sys ROS done and negative aside from above. OBJECTIVE: Vital Signs Period Temp Pulse Resp BP Sys/Gibson Pulse Ox Last 24 Hr 98.0 F-99.5 F 91-109 18-20 151-177/76-98 95-96 GENERAL: The patient is awake, alert, and fully oriented, in no acute distress. HEAD: Normal with no signs of trauma. EYES: PERRL, extraocular movements intact, sclera anicteric, conjunctiva clear. No ptosis. ENT: Ears normal, nares patent, oropharynx clear without exudates, moist mucous membranes. NECK: Trachea midline, full range of motion, supple. LUNGS: Breath sounds equal, clear to auscultation bilaterally, no wheezes, no crackles, no accessory muscle use. HEART: Regular rate and rhythm, S1, S2 without murmur, rub or gallop. ABDOMEN: Soft, nontender, nondistended, normoactive bowel sounds, no guarding, no rebound, no hepatosplenomegaly, no masses. EXTREMITIES: 2+ pulses, warm, well-perfused, no edema. NEUROLOGICAL: Cranial nerves II through XII grossly intact. Normal speech, gait not observed. PSYCH: Normal mood, normal affect. SKIN: Warm, dry, normal turgor, no rashes or lesions noted Laboratory Results - last 24 hr 11/14/18 11/16/18 11/16/18 11:30 16:10 21:25 WBC RBC Hgb Hct MCV MCH MCHC RDW Plt Count MPV Absolute Neuts (auto) Neutrophils % Lymphocytes % Monocytes % Eosinophils % Basophils % Nucleated RBC % Sodium Potassium Chloride Carbon Dioxide Anion Gap BUN Creatinine Est GFR (CKD-EPI)AfAm Est GFR (CKD-EPI)NonAf POC Glucometer 218 261 Random Glucose Calcium Magnesium Total Bilirubin AST ALT Alkaline Phosphatase Total Protein Albumin Urine Myoglobin 68 H 11/17/18 11/17/18 11/17/18 05:26 06:00 06:00 WBC 11.0 H RBC 4.46 Hgb 12.7 Hct 38.4 MCV 86.1 MCH 28.4 MCHC 33.0 RDW 14.5 Plt Count 174 MPV 8.9 Absolute Neuts (auto) 8.5 H Neutrophils % 76.9 Lymphocytes % 13.5 D Monocytes % 5.7 Eosinophils % 3.7 Basophils % 0.2 Nucleated RBC % 0 Sodium 148 H Potassium 3.8 Chloride 115 H Carbon Dioxide 29 Anion Gap 4 L BUN 46.6 H Creatinine 1.7 H Est GFR (CKD-EPI)AfAm 47.98 Est GFR (CKD-EPI)NonAf 41.40 POC Glucometer 146 Random Glucose 160 H Calcium 8.5 Magnesium 2.5 H Total Bilirubin 0.7 AST 17 ALT 16 Alkaline Phosphatase 75 Total Protein 6.9 Albumin 2.6 L Urine Myoglobin 11/17/18 12:20 WBC RBC Hgb Hct MCV MCH MCHC RDW Plt Count MPV Absolute Neuts (auto) Neutrophils % Lymphocytes % Monocytes % Eosinophils % Basophils % Nucleated RBC % Sodium Potassium Chloride Carbon Dioxide Anion Gap BUN Creatinine Est GFR (CKD-EPI)AfAm Est GFR (CKD-EPI)NonAf POC Glucometer 224 Random Glucose Calcium Magnesium Total Bilirubin AST ALT Alkaline Phosphatase Total Protein Albumin Urine Myoglobin Active Medications Generic Name Dose Route Start Last Admin Trade Name Freq PRN Reason Stop Dose Admin Amlodipine Besylate 5 mg 11/16/18 10:00 11/17/18 10:44 Norvasc - PO 5 mg DAILY [facility] Administration Aspirin 81 mg 11/14/18 10:00 11/17/18 10:44 Ecotrin - PO 81 mg DAILY [facility] Administration Atorvastatin Calcium 80 mg 11/14/18 22:00 11/16/18 21:26 Lipitor - PO 80 mg HS [facility] Administration Heparin Sodium (Porcine) 5,000 unit 11/14/18 06:00 11/17/18 05:27 Heparin - SQ 5,000 unit TID [facility] Administration Insulin Aspart 1 vial 11/14/18 04:15 11/17/18 12:22 Novolog Vial Sliding Scale - SQ 2 unit Q6H [facility] Administration Protocol Metoprolol Succinate 12.5 mg 11/15/18 11:00 11/17/18 10:44 Toprol Xl - PO 12.5 mg DAILY [facility] Administration ASSESSMENT/PLAN: Patient presents with MRI-confirmed CVA with history of HTN, HLF. He is on ASA and high-intensity statin with no developing new focal deficits. head ct head showed right basal ganglia ischemic lesion. MRI of brain confirmed stroke and carotid u/s with 50-69% percent stenosis. seen by vascular and no interventions currently planned. -Acute CVA (Confirmed on MRI, R-basal ganglia ischemic lesion on MRI. Focusing on risk factor mitigation with lipitor and antiplatelets. Swallow eval noted and aspiration risk appreciated. MBS. Will need rehab due to notable deficits impacting underlying functional status necessitating ongoing rehabilitation; PT eval noted). -Carotid A. 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 Referring to podiatry as OP). -ESPINOZA on likely CKD (Underlying CKD likely 2/2 HTN, DM. Overall ESPINOZA is due to dye and hypoperfusion giving rise to ATN picture with 0.5% FeNa noted on initial urines. Cr has plateaued. He recieved a good deal of fluids and was noted to have congestion on his CXR-lasix OK with nephrology.) -Likely D-CHF (NYHA ~1 baseline) with underlying E/A reversal noted on echo; will defer to cardiology and encourage OP followup. Cr slightly increased today after the lasix IV so holding further diuresis. Monitor is and os and continue to assess need QD. Will need to address is needs daily dosing prior to DC. No reduced LVEF so no need for GDMT with evidence-based BB, TAD, etc. etc. -RBBB (known, apprecited on EKG) -Rhabdo (2/2 being found down, per nephro. CK down-resolved. Consider rechecking CK if worsening of renal function) All questions answered 25 minutes spent in the care of this patient with at least 50% of the time face- to-face with counseling, etc. Full Code Visit type - Emergency Visit Emergency Visit: No - New Patient This patient is new to me today: No - Critical Care Critical Care patient: No
[2018-11-18] MEDS ORDERED: AMPICILLIN NA/SULBACTAM NA 1.5 GM in SODIUM CHLORIDE 100 ML IVPB ONE (12:30)
--- NOTE | 2018-11-18 15:02 | PN ---
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 (short form) - Note 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: covering dr scherer problems s/p AMS and fall from cva rhabdo with worsening renal function. Hypertension DM type 2 Current Medications Amlodipine Besylate (Norvasc -) 10 mg PO DAILY [facility] Last Admin: 11/18/18 10:32 Dose: 10 mg Aspirin (Ecotrin -) 81 mg PO DAILY [facility] Last Admin: 11/18/18 10:32 Dose: 81 mg Atorvastatin Calcium (Lipitor -) 80 mg PO HS [facility] Last Admin: 11/17/18 21:19 Dose: 80 mg Heparin Sodium (Porcine) (Heparin -) 5,000 unit SQ TID [facility] Last Admin: 11/18/18 05:28 Dose: 5,000 unit Insulin Aspart (Novolog Vial Sliding Scale -) 1 vial SQ Q6H [facility]; Protocol Last Admin: 11/18/18 12:12 Dose: 2 unit Metoprolol Succinate (Toprol Xl -) 25 mg PO DAILY [facility] Last Admin: 11/18/18 10:32 Dose: 25 mg Last Vital Signs Temp Pulse Resp BP Pulse Ox 98.5 F 90 18 174/98 H 98 11/18/18 10:00 11/18/18 10:00 11/18/18 10:00 11/18/18 10:00 11/18/18 10:00 Lungs clear Heart reg Abd soft notender Ext no edema CBC, BMP 11/17/18 06:00 11/17/18 06:00 IMP- Hypernatremia poor intake with thickened water Plan- IVF x a day or 2
[2018-11-18] MEDS: POTASSIUM CHLORIDE 10 MEQ in SODIUM CHLORIDE 0.45% 1,000 ML IVPB SCH (18:08)
[2018-11-18] MEDS ORDERED: PT OWN MED DRAWER 7, Y5N ONE (18:21)
[2018-11-18] MEDS: ATORVASTATIN CA 80 MG TABLET (FP) PO SCH (21:20)
[2018-11-19] MEDS: POTASSIUM CHLORIDE 10 MEQ in SODIUM CHLORIDE 0.45% 1,000 ML IVPB SCH ×2 (03:50→06:42)
[2018-11-19] MEDS: INSULIN SLIDING SCALE (NOVOLOG) 1 VIAL SQ SCH ×4 (05:34→21:45)
[2018-11-19] MEDS: HEPARIN NA (PORCINE) 5,000 UNITS/ML 1ML VIAL SQ SCH ×3 (06:04→21:44)
[2018-11-19] MEDS ORDERED: PT OWN MED DRAWER 7, Y5N ONE (06:20)
[2018-11-19 06:33] LABS: BASO % 0.5 % (0-2.0); EOS % 4.8 % (0-4.5); HEMATOCRIT 42.1 % (35.4-49); HEMOGLOBIN 13.5 GM/dL (11.7-16.9); MCH 28.2 pg (25.7-33.7); MCHC 32.2 g/dl (32.0-35.9); MEAN CELL VOLUME 87.4 fl (80-96); MEAN PLT VOLUME 9.5 fl (7.5-11.1); MONO % 6.2 % (3.8-10.2); NEUT % 74.5 % (42.8-82.8); PLATELET COUNT 178 K/MM3 (134-434); RBC 4.81 M/mm3 (4.00-5.60); RDW 14.3 % (11.9-15.9); WHITE BLOOD COUNT 11.5 K/mm3 (4.0-10.0)
[2018-11-19 06:54] LABS: BLOOD UREA NITROGEN 33.3 mg/dL (7-18); CALCIUM 8.8 mg/dL (8.5-10.1); CREATININE 1.2 mg/dL (0.55-1.3); MAGNESIUM 2.1 mg/dL (1.8-2.4); POTASSIUM 4.5 mmol/L (3.5-5.1)
--- NOTE | 2018-11-19 07:33 | PN ---
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, Physician History of Present Illness: Patient is a 63 year old male with a significant past medical history of hypertension, HLD who was brought into the ED on 11/14/2018 via EMS after being found down in his apartment. He has been reportedly on the floor for apx 5 days. He was found to have a non hemorrhagic right basal ganglia striacap infarct and an elevated CPK on admission. His troponins were also elevated. Patient is pending placement at [facility] - Current Medication List Current Medications: Active Medications Amlodipine Besylate (Norvasc -) 10 mg PO DAILY [facility] Last Admin: 11/18/18 10:32 Dose: 10 mg Aspirin (Ecotrin -) 81 mg PO DAILY [facility] Last Admin: 11/18/18 10:32 Dose: 81 mg Atorvastatin Calcium (Lipitor -) 80 mg PO HS [facility] Last Admin: 11/18/18 21:20 Dose: 80 mg Heparin Sodium (Porcine) (Heparin -) 5,000 unit SQ TID [facility] Last Admin: 11/19/18 06:04 Dose: 5,000 unit Potassium Chloride 10 meq/ (Sodium Chloride) 1,005 mls @ 83 mls/hr IVPB Q12H [facility] Last Admin: 11/19/18 06:42 Dose: 83 mls/hr Insulin Aspart (Novolog Vial Sliding Scale -) 1 vial SQ Q6H [facility]; Protocol Last Admin: 11/19/18 05:34 Dose: 1 unit Metoprolol Succinate (Toprol Xl -) 25 mg PO DAILY [facility] Last Admin: 11/18/18 10:32 Dose: 25 mg - Objective Vital Signs: Vital Signs Temperature 98.8 F 11/19/18 06:00 Pulse Rate 85 11/19/18 06:00 Respiratory Rate 19 11/19/18 06:00 Blood Pressure 156/105 H 11/19/18 06:00 O2 Sat by Pulse Oximetry (%) 97 11/18/18 21:00 Constitutional: Yes: Well Nourished, No Distress, Calm Eyes: Yes: WNL, Conjunctiva Clear HENT: Yes: WNL, Atraumatic, Normocephalic Neck: Yes: WNL, Supple, Trachea Midline Cardiovascular: Yes: WNL, Regular Rate and Rhythm Respiratory: Yes: WNL, Regular, CTA Bilaterally Gastrointestinal: Yes: WNL, Normal Bowel Sounds ...Rectal Exam: Yes: Deferred Genitourinary: Yes: WNL Breast(s): Yes: WNL Musculoskeletal: Yes: Muscle Weakness Extremities: Yes: WNL Edema: No Peripheral Pulses WNL: Yes Peripheral Pulses: Left Radial: 2+, Right Radial: 2+, Left Doralis Pedis: 2+, Right Dorsalis Pedis: 2+, Left Femoral: 2+, Right Femoral: 2+ Integumentary: Yes: WNL Neurological: Yes: Facial Droop, Unsteady Gait, Weakness (left sided weakness) ...Motor Strength: LUE, RUE (0/5) Psychiatric: Yes: Alert Labs: CBC, BMP 11/19/18 05:20 11/19/18 05:20 INR, PTT INR 1.09 (0.83-1.09) 11/14/18 00:00 Problem List - Problems (1) ESPINOZA (acute kidney injury) Assessment/Plan: Renal function now improved Cr 1.2 Renal US showed no obstruction or stones. Serum na improved s/p IVF 145 now daily CMP BP remains high, will start TAD-lisinipril 2.5mg and titrate as needed with careful monitoring of Cr Code(s): N17.9 - ACUTE KIDNEY FAILURE, UNSPECIFIED (2) CVA (cerebral vascular accident) Assessment/Plan: HCT right basal ganglia infarct, mri confirmed right basal ganglia stroke MRI of brain confirmed stroke and carotid u/s with 50-69% percent stenosis seen by Dr Koehler and no interventions needed c/w lipitor 80, asa 81. c/w with tele monitoring appreciate consultation by [employer] Silva ordered discharge planning to [facility] Code(s): I63.9 - CEREBRAL INFARCTION, UNSPECIFIED Qualifiers: Laterality of affected vessel: left (3) Elevated troponin Assessment/Plan: elevated most liekly in the setting of demand ischemia appreciate cardiology consultation trop trended down,no need ro further trend outpatient f/u with home cardiology Code(s): R79.89 - OTHER SPECIFIED ABNORMAL FINDINGS OF BLOOD CHEMISTRY (4) Hypertension Assessment/Plan: BP remains high start lisinispril 2.5mg with uptitration as needed paying close attention to Cr appreciate renal/cardiology consultation c/w metoprolol c/w to monitor on tele c/w statin cardiac diet Code(s): I10 - ESSENTIAL (PRIMARY) HYPERTENSION (5) Prophylactic measure Assessment/Plan: FEN adequate PO intake, IVF stopped given congestive changes on CXR pending MBS c/w dysphagia diet monitor electrolytes and replete prn DVT c/w heparin Dispo maintain on tele full code discharge planning to [facility] Code(s): Z29.9 - ENCOUNTER FOR PROPHYLACTIC MEASURES, UNSPECIFIED (6) Rhabdomyolysis Assessment/Plan: resolving fluid resuscitated in ED CK trending down Code(s): M62.82 - RHABDOMYOLYSIS Visit type - Emergency Visit Emergency Visit: Yes ED Registration Date: 11/14/18 Care time: The patient presented to the Emergency Department on the above date and was hospitalized for further evaluation of their emergent condition. - New Patient This patient is new to me today: No - Critical Care Critical Care patient: No - Discharge Referral Referred to [facility] Med P.C.: No
--- NOTE | 2018-11-19 10:11 | PN ---
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 (short form) - Note 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: 63 year old male history of HTN,HLD,DM, came with left sided hemiparesis. Patient was lying on the floor for five days, when he was found laying on flOOR. Paitent never had stroke, he did have ? cad. Patient had ct head showed right basal ganglia ishcemic lesion. He is waiting for mri. He had speech and passed swallowing evaluation. mri of brain confirmed stroke and carotid ultrasound unremarkable. No new symptoms NEUROLOGICAL EXAMINATION Alert oriented x 2, speech is dysarthric, neck is Supple left sided facial palsy, eomi, left dense hemiparesis ct head right basal ganglia infarct, mri confirmed right basal ganglia stroke Assessment/Plan Right mca stroke ( right basal ganglia) risk factor DM,HTN. Patient passed swallowing test and on puree diet PLAN: continue aspirin and statin PT and waiting for placement waiting for placement Thanking you so much Beau Young MD
--- NOTE | 2018-11-19 11:06 | PN ---
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 (short form) - Note 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: Renal follow up for ESPINOZA Seen and examined at the bedside awake and alert no acute complaints on IVF tolerating oral diet denies any sob, cp, fever or chills making urine Vital Signs Temperature 97.9 F 11/19/18 09:17 Pulse Rate 80 11/19/18 09:17 Respiratory Rate 19 11/19/18 09:17 Blood Pressure 161/92 11/19/18 09:17 O2 Sat by Pulse Oximetry (%) 97 11/19/18 08:48 Intake & Output 11/16/18 11/17/18 11/18/18 11/19/18 23:59 23:59 23:59 23:59 Intake Total 350 550 370 Output Total 1250 1400 1000 Balance -900 -850 -630 NAD on NC O2 awake and alert neck supple RRR CTA soft NT/ND no LE edema CBC, BMP 11/19/18 05:20 11/19/18 05:20 Current Medications Amlodipine Besylate (Norvasc -) 10 mg PO DAILY [facility] Last Admin: 11/18/18 10:32 Dose: 10 mg Aspirin (Ecotrin -) 81 mg PO DAILY [facility] Last Admin: 11/18/18 10:32 Dose: 81 mg Atorvastatin Calcium (Lipitor -) 80 mg PO HS [facility] Last Admin: 11/18/18 21:20 Dose: 80 mg Heparin Sodium (Porcine) (Heparin -) 5,000 unit SQ TID [facility] Last Admin: 11/19/18 06:04 Dose: 5,000 unit Potassium Chloride 10 meq/ (Sodium Chloride) 1,005 mls @ 83 mls/hr IVPB Q12H [facility] Last Admin: 11/19/18 06:42 Dose: 83 mls/hr Insulin Aspart (Novolog Vial Sliding Scale -) 1 vial SQ Q6H [facility]; Protocol Last Admin: 11/19/18 05:34 Dose: 1 unit Metoprolol Succinate (Toprol Xl -) 25 mg PO DAILY [facility] Last Admin: 11/18/18 10:32 Dose: 25 mg 63 year old gentleman with history of hypertension and DM type 2 who presented from home with AMS and fall and found to have acute CVA and rhabdo with worsening renal function. 1. Acute Renal Injury likely due to pigment injury from rhabdomyolysis vs. transient renal hypoprofusion 2. Acute CVA 3. Rhabdomyolysis 4. Hypertension 4. DM type 2 Renal function now improved and stable Renal US showed no obstruction or stones. Serum na improved s/p IVF can d/c IVF and monitor on oral intake alone Trend renal function and electrolytes daily can consider addition of ACEi Neurology follow up Thank you Eusebio Fritz DO
[2018-11-19] MEDS: amLODIPine BESYLATE 5 MG TABLET (FP) PO SCH (11:36)
[2018-11-19] MEDS: metoPROLOL SUCCINATE 25 MG TAB.SR.24H (FP) PO SCH (11:36)
[2018-11-19] MEDS: ASPIRIN COATED 81 MG TABLET.EC PO SCH (11:36)
--- NOTE | 2018-11-19 13:05 | CON.PULM ---
Consult Consult Specialty:: PULM/CCM Referred by:: Hospitalist Reason for Consultation:: Abnormal CT Chest - History of Present Illness Chief Complaint: S/P Fall History of Present Illness: 63 M, HTN, HLD, and DM. Admitted via the ER after he was found on the floor of his apartment. Patient is not sure of the events. He was not able to get off the floor due to generalized weakness. Reported had diarrhea. Being evaluated and treated for an age-indeterminate infarct within the right basal ganglia. No CP or SOB. No reports of MATSON. CT: basilar atelectasis / increased diameter of the PA. ECHO: no evidence of PAH - History Source History Provided By: Patient, Medical Record Limitations to Obtaining History: Poor Historian - Past Medical History Pulmonary: No: Asthma, Bronchitis, Cancer, COPD, O2 Dependent, Pneumonia, Previously Intubated, Pulmonary Embolus, Pulmonary Fibrosis, Sleep Apnea - Alcohol/Substance Use Hx Alcohol Use: No - Smoking History Smoking history: Unknown if ever smoked Home Medications - Allergies Allergies/Adverse Reactions: Allergies Allergy/AdvReac Type Severity Reaction Status Date / Time No Known Allergies Allergy Verified 11/14/18 00:13 - Home Medications Home Medications: Ambulatory Orders NK [No Known Home Medication] 11/14/18 Review of Systems - Review of Systems Constitutional: reports: Malaise, Weakness. denies: Chills, Fever, Night Sweats Eyes: reports: No Symptoms HENT: reports: No Symptoms Neck: reports: No Symptoms Cardiovascular: denies: Chest Pain, Edema, Palpitations, Shortness of Breath Respiratory: denies: Cough, Exercise Intolerance, Hemoptysis, Orthopnea, PND, Snoring, SOB, SOB on Exertion, Wheezing Gastrointestinal: reports: No Symptoms Genitourinary: reports: No Symptoms Breasts: reports: No Symptoms Reported Musculoskeletal: reports: No Symptoms Integumentary: reports: No Symptoms Neurological: reports: Unsteady Gait, Weakness Endocrine: reports: No Symptoms Hematology/Lymphatic: reports: No Symptoms Psychiatric: reports: No Symptoms Physical Exam Vital Sings: Vital Signs Temperature 97.9 F 11/19/18 09:17 Pulse Rate 80 11/19/18 09:17 Respiratory Rate 19 11/19/18 09:17 Blood Pressure 161/92 11/19/18 09:17 O2 Sat by Pulse Oximetry (%) 97 11/19/18 08:48 Constitutional: Yes: No Distress, Obese Eyes: Yes: Conjunctiva Clear, EOM Intact HENT: Yes: Atraumatic, Normocephalic Neck: Yes: Supple, Trachea Midline Cardiovascular: Yes: Regular Rate and Rhythm Respiratory: Yes: Diminished. No: Accessory Muscle Use, Rales, Rhonchi, SOB, SOB on Exertion, Stridor, Tachypnea, Wheezes ...Inspection: Yes: WNL ...Clubbing: No Gastrointestinal: Yes: Normal Bowel Sounds, Soft, Abdomen, Obese Renal/: Yes: WNL Musculoskeletal: Yes: WNL Extremities: Yes: WNL Edema: No Peripheral Pulses WNL: Yes Integumentary: Yes: WNL Neurological: Yes: Alert, Oriented ...Motor Strength: WNL Psychiatric: Yes: Alert, Oriented Labs: CBC, BMP 11/19/18 05:20 11/19/18 05:20 Imaging - Results Chest X-ray: Report Reviewed, Image Reviewed Cat Scan: Report Reviewed, Image Reviewed Problem List - Problems (1) ESPINOZA (acute kidney injury) Code(s): N17.9 - ACUTE KIDNEY FAILURE, UNSPECIFIED (2) CVA (cerebral vascular accident) Code(s): I63.9 - CEREBRAL INFARCTION, UNSPECIFIED Qualifiers: Laterality of affected vessel: left (3) Elevated troponin Code(s): R79.89 - OTHER SPECIFIED ABNORMAL FINDINGS OF BLOOD CHEMISTRY (4) Hypertension Code(s): I10 - ESSENTIAL (PRIMARY) HYPERTENSION (5) Rhabdomyolysis Code(s): M62.82 - RHABDOMYOLYSIS Assessment/Plan No evidence of PAH on ECHO, likely anatomical variation on CT PT and increase ambulation, if not able then Incentive Spirometry O2 as needed No smoking VTE prophylaxis Aspiration precautions Outpatient PFTs Thank you. Dr Watson
--- NOTE | 2018-11-19 13:08 | PN ---
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 Tolerating diet. Vague, limited speech initiation without cues. Consider MBs to upgrade diet with safety. Mouthcare, especially after meals.
[2018-11-19] MEDS: LISINOPRIL 5 MG TABLET (FP) PO SCH (15:56)
[2018-11-19] MEDS ORDERED: ACETAMINOPHEN 325 MG TABLET (FP) PO PRN (21:12)
[2018-11-19] MEDS: ATORVASTATIN CA 80 MG TABLET (FP) PO SCH (21:44)
[2018-11-20] MEDS: INSULIN SLIDING SCALE (NOVOLOG) 1 VIAL SQ SCH ×4 (04:07→21:41)
[2018-11-20] MEDS: HEPARIN NA (PORCINE) 5,000 UNITS/ML 1ML VIAL SQ SCH ×3 (05:10→21:41)
[2018-11-20 06:35] LABS: BASO % 0.7 % (0-2.0); EOS % 5.2 % (0-4.5); HEMATOCRIT 41.8 % (35.4-49); HEMOGLOBIN 13.9 GM/dL (11.7-16.9); LYMPH % 12.6 % (8-40); MCH 28.6 pg (25.7-33.7); MCHC 33.2 g/dl (32.0-35.9); MEAN CELL VOLUME 86.1 fl (80-96); MEAN PLT VOLUME 9.7 fl (7.5-11.1); MONO % 5.8 % (3.8-10.2); NEUT % 75.7 % (42.8-82.8); PLATELET COUNT 184 K/MM3 (134-434); RBC 4.86 M/mm3 (4.00-5.60); RDW 14.4 % (11.9-15.9)
[2018-11-20 07:05] LABS: BLOOD UREA NITROGEN 31.8 mg/dL (7-18); CALCIUM 8.9 mg/dL (8.5-10.1); CREATININE 1.3 mg/dL (0.55-1.3); PHOSPHOROUS 3.1 mg/dL (2.5-4.9); POTASSIUM 4.5 mmol/L (3.5-5.1)
--- NOTE | 2018-11-20 10:15 | PN ---
Physical Exam: SUBJECTIVE: Patient seen and examined at the bedside. OBJECTIVE: fever 101F, leukocytosis and tachycardia, repeat blood culture and lactic acid podiatry consult Patient is a 63 year old male with a significant past medical history of hypertension, hld who was brought into the ED on 11/14/2018 via EMS after being found down in his apartment. He has been reportedly on the floor for apx 5 days. He was found to have a non hemorrhagic right basal ganglia striacap infarct and an elevated CPK on admission. His troponins were also elevated. Vital Signs Period Temp Pulse Resp BP Sys/Gibson Pulse Ox Last 24 Hr 99.1 F-101.1 F 61-92 16-19 144-158/62-100 97 GENERAL: slurred speech but now more comprehensible. Awake, alert, and fully oriented, withdrawn. HEAD: Normal with no signs of trauma EYES: PERRL, extraocular movements intact, sclera anicteric, conjunctiva clear. No ptosis. ENT: Ears normal, nares patent, oropharynx clear without exudates NECK: Trachea midline, full range of motion, supple. LUNGS: diminished bilaterally with accessory muscle use. 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 controlled rate MUSCULOSKELETAL: unable to move left arm. No bony deformities or tenderness, no step offs appreciated on the spine. No CVA tenderness. ABDOMEN: Soft, nontender, nondistended EXTREMITIES: left wallis 1 cm circular wound no active bleeding or drainage. lower ext trace edema (left > right), left great toe round posterior ulcer-dry NEUROLOGICAL: gait not observed. left sided weakness, left facial droop PSYCH: Normal mood, normal affect. Laboratory Results - last 24 hr 11/19/18 11/19/18 11/19/18 11:50 17:51 21:28 WBC RBC Hgb Hct MCV MCH MCHC RDW Plt Count MPV Absolute Neuts (auto) Neutrophils % Lymphocytes % Monocytes % Eosinophils % Basophils % Nucleated RBC % Sodium Potassium Chloride Carbon Dioxide Anion Gap BUN Creatinine Est GFR (CKD-EPI)AfAm Est GFR (CKD-EPI)NonAf POC Glucometer 226 196 215 Random Glucose Calcium Phosphorus Magnesium 11/20/18 11/20/18 11/20/18 04:02 05:32 06:00 WBC 12.0 H RBC 4.86 Hgb 13.9 Hct 41.8 MCV 86.1 MCH 28.6 MCHC 33.2 RDW 14.4 Plt Count 184 MPV 9.7 Absolute Neuts (auto) 9.0 H Neutrophils % 75.7 Lymphocytes % 12.6 Monocytes % 5.8 Eosinophils % 5.2 H Basophils % 0.7 Nucleated RBC % 0 Sodium 139 Potassium 4.5 Chloride 104 Carbon Dioxide 27 Anion Gap 8 BUN 31.8 H Creatinine 1.3 Est GFR (CKD-EPI)AfAm 66.36 Est GFR (CKD-EPI)NonAf 57.26 POC Glucometer 163 Random Glucose 198 H Calcium 8.9 Phosphorus 3.1 Magnesium 2.0 Active Medications Generic Name Dose Route Start Last Admin Trade Name Freq PRN Reason Stop Dose Admin Acetaminophen 650 mg 11/19/18 21:12 11/19/18 21:44 Tylenol - PO 650 mg Q6H PRN Administration FEVER Amlodipine Besylate 10 mg 11/17/18 14:15 11/19/18 11:36 Norvasc - PO 10 mg DAILY SHARON Administration Aspirin 81 mg 11/14/18 10:00 11/19/18 11:36 Ecotrin - PO 81 mg DAILY SHARON Administration Atorvastatin Calcium 80 mg 11/14/18 22:00 11/19/18 21:44 Lipitor - PO 80 mg HS SHARON Administration Heparin Sodium (Porcine) 5,000 unit 11/14/18 06:00 11/20/18 05:10 Heparin - SQ 5,000 unit TID SHARON Administration Insulin Aspart 1 vial 11/14/18 04:15 11/20/18 04:07 Novolog Vial Sliding Scale - SQ 1 unit Q6H SHARON Administration Protocol Lisinopril 2.5 mg 11/19/18 15:20 11/19/18 15:56 Prinivil PO 2.5 mg DAILY SHARON Administration Metoprolol Succinate 25 mg 11/17/18 13:37 11/19/18 11:36 Toprol Xl - PO 25 mg DAILY SHARON Administration ASSESSMENT/PLAN: Problem List - Problems (1) CVA (cerebral vascular accident) Assessment/Plan: head ct head showed right basal ganglia ischemic lesion. MRI of brain confirmed stroke and carotid u/s with 50-69% percent stenosis. seen by vascular and no interventions currently planned. on lipitor 80, asa 81. PT following. for MBS today. neurology following discharge planning to rehab initiated by OSWALDO Code(s): I63.9 - CEREBRAL INFARCTION, UNSPECIFIED Qualifiers: Laterality of affected vessel: left (2) Hypertension Assessment/Plan: elevated in the setting on recent stroke on metoprolol 25 xl, norvasc 10 and lisinopril 2.5mg. will increase lisinopril to 5mg for better control of BP Code(s): I10 - ESSENTIAL (PRIMARY) HYPERTENSION (3) ESPINOZA (acute kidney injury) Assessment/Plan: renal consulted and following u/s of kidneys unremarkable per report. Code(s): N17.9 - ACUTE KIDNEY FAILURE, UNSPECIFIED (4) Rhabdomyolysis Assessment/Plan: improving daily cpk awaiting todays CPK Code(s): M62.82 - RHABDOMYOLYSIS (5) Elevated troponin Assessment/Plan: troponin 3.22 > 1.09 EKG 11/14/18, left atrial enlargement, RBBB, LVH, LAD Echo11/14/18: Normal LV size and function, abnormal diastolic relaxation. continue metoprolol, asa cardiology following Code(s): R79.89 - OTHER SPECIFIED ABNORMAL FINDINGS OF BLOOD CHEMISTRY (6) Leukocytosis Assessment/Plan: wbc increased from yesterday, also spiked fever to 101F overnight, mild tachycardia repeat blood cultures, monitor vitals and labs lactic acid within normal limits. Code(s): D72.829 - ELEVATED WHITE BLOOD CELL COUNT, UNSPECIFIED (7) Prophylactic measure Assessment/Plan: heparin physical therapy bowel regimen discharge to rehab/planning full code Code(s): Z29.9 - ENCOUNTER FOR PROPHYLACTIC MEASURES, UNSPECIFIED Visit type - Emergency Visit Emergency Visit: Yes ED Registration Date: 11/14/18 Care time: The patient presented to the Emergency Department on the above date and was hospitalized for further evaluation of their emergent condition. - New Patient This patient is new to me today: No - Critical Care Critical Care patient: No - Discharge Referral Referred to [facility] Med [facility] No
--- NOTE | 2018-11-20 10:28 | PN ---
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 (short form) - Note 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: 63 year old male history of HTN,HLD,DM, came with left sided hemiparesis. Patient was lying on the floor for five days, when he was found laying on flOOR. Paitent never had stroke, he did have ? cad. Patient had ct head showed right basal ganglia ishcemic lesion. He is waiting for mri. He had speech and passed swallowing evaluation. mri of brain confirmed stroke and carotid ultrasound unremarkable. No new syptoms, waiting for placement NEUROLOGICAL EXAMINATION Alert oriented x 2, speech is dysarthric, bp 157/100 neck is Supple left sided facial palsy, eomi, left dense hemiparesis ct head right basal ganglia infarct, mri confirmed right basal ganglia stroke left ica showed moderate stenosis Assessment/Plan Right mca stroke ( right basal ganglia) risk factor DM,HTN. Patient passed swallowing test and on puree diet asymptomatic left ica moderate stenosis PLAN: continue aspirin and statin vascular surgery consult PT and waiting for placement waiting for placement Thanking you so much Beau Young MD
[2018-11-20] MEDS: LISINOPRIL 5 MG TABLET (FP) PO SCH (10:48)
[2018-11-20] MEDS: ASPIRIN COATED 81 MG TABLET.EC PO SCH (10:49)
[2018-11-20] MEDS: metoPROLOL SUCCINATE 25 MG TAB.SR.24H (FP) PO SCH (10:49)
[2018-11-20] MEDS: amLODIPine BESYLATE 5 MG TABLET (FP) PO SCH (10:49)
--- NOTE | 2018-11-20 13:24 | PN ---
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
[2018-11-20] MEDS: ATORVASTATIN CA 80 MG TABLET (FP) PO SCH (21:41)
[2018-11-21] MEDS: INSULIN SLIDING SCALE (NOVOLOG) 1 VIAL SQ SCH ×4 (05:02→22:23)
[2018-11-21] MEDS: HEPARIN NA (PORCINE) 5,000 UNITS/ML 1ML VIAL SQ SCH ×3 (05:03→22:23)
[2018-11-21 06:27] LABS: BASO % 0.3 % (0-2.0); EOS % 4.2 % (0-4.5); HEMATOCRIT 38.3 % (35.4-49); HEMOGLOBIN 12.8 GM/dL (11.7-16.9); LYMPH % 15.6 % (8-40); MCH 28.7 pg (25.7-33.7); MCHC 33.4 g/dl (32.0-35.9); MEAN CELL VOLUME 85.9 fl (80-96); MEAN PLT VOLUME 9.7 fl (7.5-11.1); MONO % 5.9 % (3.8-10.2); PLATELET COUNT 167 K/MM3 (134-434); RBC 4.46 M/mm3 (4.00-5.60); RDW 13.9 % (11.9-15.9); WHITE BLOOD COUNT 12.5 K/mm3 (4.0-10.0)
[2018-11-21 08:39] LABS: ALBUMIN 2.4 g/dl (3.4-5.0); BILIRUBIN,TOTAL 0.7 mg/dL (0.2-1); CALCIUM 8.7 mg/dL (8.5-10.1); CREATININE 1.4 mg/dL (0.55-1.3); MAGNESIUM 2.1 mg/dL (1.8-2.4); POTASSIUM 4.6 mmol/L (3.5-5.1); TOT PROT 6.9 g/dl (6.4-8.2)
--- NOTE | 2018-11-21 09:02 | PN ---
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 (short form) - Note 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: 63 year old male history of HTN,HLD,DM, came with left sided hemiparesis. Patient was lying on the floor for five days, when he was found laying on flOOR. Paitent never had stroke, he did have ? cad. Patient had ct head showed right basal ganglia ishcemic lesion. He is waiting for mri. He had speech and passed swallowing evaluation. mri of brain confirmed stroke and carotid ultrasound unremarkable. No new syptoms, waiting for placement at [facility] , patient passed swalloing and on chopped NEUROLOGICAL EXAMINATION Alert oriented x 2, speech is dysarthric, neck is Supple left sided facial palsy, eomi, left dense hemiparesis ct head right basal ganglia infarct, mri confirmed right basal ganglia stroke left ica showed moderate stenosis Assessment/Plan Right mca stroke ( right basal ganglia) risk factor DM,HTN. Patient passed swallowing test and on puree diet asymptomatic left ica moderate stenosis PLAN: continue aspirin and statin vascular surgery consult pending PT and waiting for placement [facility] Thanking you so much Beau Young MD
[2018-11-21] MEDS: amLODIPine BESYLATE 5 MG TABLET (FP) PO SCH (11:33)
[2018-11-21] MEDS: ASPIRIN COATED 81 MG TABLET.EC PO SCH (11:33)
[2018-11-21] MEDS: metoPROLOL SUCCINATE 25 MG TAB.SR.24H (FP) PO SCH (11:33)
[2018-11-21] MEDS: LISINOPRIL 5 MG TABLET (FP) PO SCH (11:34)
--- NOTE | 2018-11-21 12:16 | CONSULT ---
Consult Consult Specialty:: Podiatry Reason for Consultation:: Chronic wound left hallux. - History Source History Provided By: Patient - Past Medical History Pulmonary: No: Asthma, Bronchitis, Cancer, COPD, O2 Dependent, Pneumonia, Previously Intubated, Pulmonary Embolus, Pulmonary Fibrosis, Sleep Apnea - Alcohol/Substance Use Hx Alcohol Use: No - Smoking History Smoking history: Unknown if ever smoked Home Medications - Allergies Allergies/Adverse Reactions: Allergies Allergy/AdvReac Type Severity Reaction Status Date / Time No Known Allergies Allergy Verified 11/14/18 00:13 - Home Medications Home Medications: Ambulatory Orders NK [No Known Home Medication] 11/14/18 Physical Exam Vital Signs: Vital Signs Temperature 98.3 F 11/21/18 10:00 Pulse Rate 88 11/21/18 10:00 Respiratory Rate 20 11/21/18 10:00 Blood Pressure 165/80 11/21/18 10:00 O2 Sat by Pulse Oximetry (%) 95 11/20/18 21:00 Extremities: Yes: Other (non palpable pulses b/l feet, +grade 2 wound sub left big toe, -drainage, +hypertrophic tissue noted, -mal odor,) Labs: CBC, BMP 11/21/18 05:28 11/21/18 05:20 Assessment/Plan wound 2nd toe left chronic dm xray left foot. Vascular consult for evaluation of PVD. Santyl dressing to left big toe wound. Will follow.
--- NOTE | 2018-11-21 12:18 | PN ---
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 Dys Ground/thin ordered. CXR noted. Monitor tolerance
--- NOTE | 2018-11-21 12:58 | PN ---
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, Physician History of Present Illness: PULMONARY ALERT,NO DISTRESS,-CONGESTION,AFEBRILE - Current Medication List Current Medications: Active Medications Acetaminophen (Tylenol -) 650 mg PO Q6H PRN PRN Reason: FEVER Last Admin: 11/19/18 21:44 Dose: 650 mg Amlodipine Besylate (Norvasc -) 10 mg PO DAILY [facility] Last Admin: 11/21/18 11:33 Dose: 10 mg Aspirin (Ecotrin -) 81 mg PO DAILY [facility] Last Admin: 11/21/18 11:33 Dose: 81 mg Atorvastatin Calcium (Lipitor -) 80 mg PO HS [facility] Last Admin: 11/20/18 21:41 Dose: 80 mg Collagenase (Santyl -) 1 applic TP DAILY [facility]; Protocol Heparin Sodium (Porcine) (Heparin -) 5,000 unit SQ TID [facility] Last Admin: 11/21/18 05:03 Dose: 5,000 unit Insulin Aspart (Novolog Vial Sliding Scale -) 1 vial SQ Q6H [facility]; Protocol Last Admin: 11/21/18 11:37 Dose: 2 unit Lisinopril (Prinivil) 5 mg PO DAILY [facility] Last Admin: 11/21/18 11:34 Dose: 5 mg Metoprolol Succinate (Toprol Xl -) 25 mg PO DAILY [facility] Last Admin: 11/21/18 11:33 Dose: 25 mg - Objective Vital Signs: Vital Signs Temperature 98.3 F 11/21/18 10:00 Pulse Rate 88 11/21/18 10:00 Respiratory Rate 20 11/21/18 10:00 Blood Pressure 165/80 11/21/18 10:00 O2 Sat by Pulse Oximetry (%) 95 11/20/18 21:00 Constitutional: Yes: Well Nourished, Calm Eyes: Yes: WNL HENT: Yes: WNL Neck: Yes: WNL Cardiovascular: Yes: Regular Rate and Rhythm, S1, S2 Respiratory: Yes: Diminished Gastrointestinal: Yes: Normal Bowel Sounds, Soft Extremities: Yes: WNL Edema: No Neurological: Yes: Alert, Oriented Labs: CBC, BMP 11/21/18 05:28 11/21/18 05:20 INR, PTT INR 1.09 (0.83-1.09) 11/14/18 00:00 - ....Imaging Chest X-ray: Report Reviewed, Image Reviewed Assessment/Plan Problem List - Problems (1) ESPINOZA (acute kidney injury) Code(s): N17.9 - ACUTE KIDNEY FAILURE, UNSPECIFIED (2) CVA (cerebral vascular accident) Code(s): I63.9 - CEREBRAL INFARCTION, UNSPECIFIED Qualifiers: Laterality of affected vessel: left (3) Elevated troponin Code(s): R79.89 - OTHER SPECIFIED ABNORMAL FINDINGS OF BLOOD CHEMISTRY (4) Hypertension Code(s): I10 - ESSENTIAL (PRIMARY) HYPERTENSION (5) Rhabdomyolysis Code(s): M62.82 - RHABDOMYOLYSIS 6 ? ASPIRATION Assessment/Plan PT and increase ambulation, if not able then Incentive Spirometry O2 as needed No smoking VTE prophylaxis Aspiration precautions Outpatient PFTs Monitor cbc, monitor lytes,renal function DR KURZT
--- NOTE | 2018-11-21 13:07 | CON.ID ---
Consult Consult Specialty:: infectious diseases Referred by:: john Reason for Consultation:: leukocytosis,non healing wound - History of Present Illness Chief Complaint: wound non healing History of Present Illness: 63 y/o/m with PMHx of HTN, HLD, DM BIB by EMS after being found down in his apartment. A friend of the patient called his apartment management who called EMS and the patient was found on the floor of his apartment. Patient states he thinks he fell on 1/3 but is unsure. He was unable to get up due to weakness and states he soiled himself and had diarrhea when he was on the floor. Patient is not able to move his left arm and states he still feels weak. He states that before he fell he felt weak and dizzy and was unable to hold himself up. He states he did not lose consciousness and did not hit his head. He endorses chronic abd pain and back pain. He denies CP, SOB, Nausea, vomiting, changes in vision. patient was doing well but found to ahve increase in the wbc count and i was called to asses - History Source History Provided By: Patient, Medical Record Limitations to Obtaining History: No Limitations - Past Medical History Pulmonary: No: Asthma, Bronchitis, Cancer, COPD, O2 Dependent, Pneumonia, Previously Intubated, Pulmonary Embolus, Pulmonary Fibrosis, Sleep Apnea - Alcohol/Substance Use Hx Alcohol Use: No - Smoking History Smoking history: Unknown if ever smoked Home Medications - Allergies Allergies/Adverse Reactions: Allergies Allergy/AdvReac Type Severity Reaction Status Date / Time No Known Allergies Allergy Verified 11/14/18 00:13 - Home Medications Home Medications: Ambulatory Orders RX: Acetaminophen [Tylenol .Regular Strength -] 650 mg PO Q6H PRN tablet RX: Amlodipine Besylate [Norvasc -] 10 mg PO DAILY tablet 11/22/18 RX: Amox-Tr/K Cl [Augmentin 500-125mg Tablet -] 1 tab PO BID@0800,1730 tablet 11/22/18 RX: Aspirin Coated [Ecotrin -] 81 mg PO DAILY tablet.ec 11/22/18 RX: Atorvastatin Ca [Lipitor] 80 mg PO HS tablet 11/22/18 RX: Collagenase Clostridium Hist. [Santyl -] 1 applic TP DAILY tube 11/22/18 RX: Heparin - 5,000 unit SQ TID vial 11/22/18 RX: Insulin Sliding Scale [Novolog Vial Sliding Scale -] 1 vial SQ Q6H units RX: Lisinopril [Prinivil] 10 mg PO DAILY tablet 11/23/18 RX: Metoprolol Succinate [Toprol XL -] 75 mg PO DAILY #0 tab.sr.24h 11/23/18 Review of Systems - Review of Systems Constitutional: reports: No Symptoms Eyes: reports: No Symptoms HENT: reports: No Symptoms Neck: reports: No Symptoms Cardiovascular: reports: No Symptoms Respiratory: reports: SOB, SOB on Exertion Gastrointestinal: reports: No Symptoms Genitourinary: reports: No Symptoms Musculoskeletal: reports: Other Integumentary: reports: Wound Neurological: reports: No Symptoms Endocrine: reports: No Symptoms Hematology/Lymphatic: reports: No Symptoms Psychiatric: reports: No Symptoms Physical Exam Vital Signs: Vital Signs Temperature 98.3 F 11/21/18 10:00 Pulse Rate 88 11/21/18 10:00 Respiratory Rate 20 11/21/18 10:00 Blood Pressure 165/80 11/21/18 10:00 O2 Sat by Pulse Oximetry (%) 95 11/20/18 21:00 Constitutional: Yes: Well Nourished, Calm, Mild Distress Eyes: Yes: Conjunctiva Clear Cardiovascular: Yes: S1, S2 Respiratory: Yes: Regular, On Nasal O2, Poor Air Entry Gastrointestinal: Yes: Normal Bowel Sounds, Soft Musculoskeletal: Yes: WNL Extremities: Yes: Other Neurological: Yes: Alert, Oriented Psychiatric: Yes: Alert, Oriented Labs: CBC, BMP 11/21/18 05:28 11/21/18 05:20 Imaging - Results Chest X-ray: Report Reviewed, Image Reviewed Cat Scan: Report Reviewed, Image Reviewed MRI: Report Reviewed, Image Reviewed Assessment/Plan Problem List - Problems (1) ESPINOZA (acute kidney injury) Code(s): N17.9 - ACUTE KIDNEY FAILURE, UNSPECIFIED (2) CVA (cerebral vascular accident) Code(s): I63.9 - CEREBRAL INFARCTION, UNSPECIFIED Qualifiers: Laterality of affected vessel: left (3) Elevated troponin Code(s): R79.89 - OTHER SPECIFIED ABNORMAL FINDINGS OF BLOOD CHEMISTRY (4) Hypertension Code(s): I10 - ESSENTIAL (PRIMARY) HYPERTENSION (5) Rhabdomyolysis Code(s): M62.82 - RHABDOMYOLYSIS leukocytosis plan will start patient on abx 'monitor the ulcer urology rest as per the team await for all results
[2018-11-21] MEDS: COLLAGENASE CLOSTRIDIUM HIST. 30 GRAMS TUBE TP SCH (14:03)
--- NOTE | 2018-11-21 14:55 | PN ---
Physical Exam: SUBJECTIVE: Patient seen and examined at the bedside. patient reports feeling well, denies chest pain or shortness of breath. OBJECTIVE: fevers resolved, leukocytosis persists @ 12.5. lactic acid, blood cultures negative. congested seen by podiatry for left great toe ulceration, will send out for mri to rule out for osteo. Patient is a 63 year old male with a significant past medical history of hypertension, hld who was brought into the ED on 11/14/2018 via EMS after being found down in his apartment. He has been reportedly on the floor for apx 5 days. He was found to have a non hemorrhagic right basal ganglia striacap infarct and an elevated CPK on admission. His troponins were also elevated. Vital Signs Period Temp Pulse Resp BP Sys/Gibson Pulse Ox Last 24 Hr 98.1 F-99.6 F 81-90 16-20 124-165/76-92 95 GENERAL: slurred speech but now more comprehensible. Awake, alert, and fully oriented, withdrawn. HEAD: Normal with no signs of trauma EYES: PERRL, extraocular movements intact, sclera anicteric, conjunctiva clear. No ptosis. ENT: Ears normal, nares patent, oropharynx clear without exudates NECK: Trachea midline, full range of motion, supple. LUNGS: diminished bilaterally with accessory muscle use. on 2 liters HEART: Regular rate and rhythm, air sampling and monitoring: shows tachycardia 108, ekg: sinus rhythm, with PVCs. controlled rate MUSCULOSKELETAL: unable to move left arm. No bony deformities or tenderness, no step offs appreciated on the spine. No CVA tenderness. ABDOMEN: Soft, nontender, nondistended EXTREMITIES: left wallis 1 cm circular wound no active bleeding or drainage. lower ext trace edema (left > right), left great toe round posterior ulcer-dry NEUROLOGICAL: gait not observed. left sided weakness, left facial droop PSYCH: Normal mood, normal affect. Laboratory Results - last 24 hr 11/20/18 11/20/18 11/21/18 16:54 21:40 05:00 WBC RBC Hgb Hct MCV MCH MCHC RDW Plt Count MPV Absolute Neuts (auto) Neutrophils % Lymphocytes % Monocytes % Eosinophils % Basophils % Nucleated RBC % Sodium Potassium Chloride Carbon Dioxide Anion Gap BUN Creatinine Est GFR (CKD-EPI)AfAm Est GFR (CKD-EPI)NonAf POC Glucometer 185 226 186 Random Glucose Calcium Magnesium Total Bilirubin AST ALT Alkaline Phosphatase Total Protein Albumin 11/21/18 11/21/18 11/21/18 05:20 05:28 11:36 WBC 12.5 H RBC 4.46 Hgb 12.8 Hct 38.3 MCV 85.9 MCH 28.7 MCHC 33.4 RDW 13.9 Plt Count 167 MPV 9.7 Absolute Neuts (auto) 9.3 H Neutrophils % 74.0 Lymphocytes % 15.6 D Monocytes % 5.9 Eosinophils % 4.2 Basophils % 0.3 Nucleated RBC % 0 Sodium 140 Potassium 4.6 Chloride 106 Carbon Dioxide 28 Anion Gap 6 L BUN 34.0 H Creatinine 1.4 H Est GFR (CKD-EPI)AfAm 60.68 Est GFR (CKD-EPI)NonAf 52.35 POC Glucometer 219 Random Glucose 174 H Calcium 8.7 Magnesium 2.1 Total Bilirubin 0.7 AST 28 ALT 26 Alkaline Phosphatase 85 Total Protein 6.9 Albumin 2.4 L Active Medications Generic Name Dose Route Start Last Admin Trade Name Freq PRN Reason Stop Dose Admin Acetaminophen 650 mg 11/19/18 21:12 11/19/18 21:44 Tylenol - PO 650 mg Q6H PRN Administration FEVER Amlodipine Besylate 10 mg 11/17/18 14:15 11/21/18 11:33 Norvasc - PO 10 mg DAILY [facility] Administration Aspirin 81 mg 11/14/18 10:00 11/21/18 11:33 Ecotrin - PO 81 mg DAILY [facility] Administration Atorvastatin Calcium 80 mg 11/14/18 22:00 11/20/18 21:41 Lipitor - PO 80 mg HS [facility] Administration Collagenase 1 applic 11/21/18 13:00 11/21/18 14:03 Santyl - TP 1 applic DAILY [facility] Administration Protocol Heparin Sodium (Porcine) 5,000 unit 11/14/18 06:00 11/21/18 14:02 Heparin - SQ 5,000 unit TID [facility] Administration Insulin Aspart 1 vial 11/14/18 04:15 11/21/18 11:37 Novolog Vial Sliding Scale - SQ 2 unit Q6H [facility] Administration Protocol Lisinopril 5 mg 11/21/18 10:00 11/21/18 11:34 Prinivil PO 5 mg DAILY [facility] Administration Metoprolol Succinate 25 mg 11/17/18 13:37 11/21/18 11:33 Toprol Xl - PO 25 mg DAILY [facility] Administration ASSESSMENT/PLAN: Problem List - Problems (1) CVA (cerebral vascular accident) Assessment/Plan: head ct head showed right basal ganglia ischemic lesion. MRI of brain confirmed stroke and carotid u/s with 50-69% percent stenosis. seen by vascular and no interventions currently planned. on lipitor 80, asa 81. PT following. had swallow test and mbs. recommended ground diet with thin liquids. neurology following discharge planning to rehab initiated by OSWALDO Code(s): I63.9 - CEREBRAL INFARCTION, UNSPECIFIED Qualifiers: Laterality of affected vessel: left (2) Hypertension Assessment/Plan: elevated in the setting on recent stroke on metoprolol 25 xl, norvasc 10 and lisinopril 5mg. will increase metoprolol to 50mg xl for better control of BP Code(s): I10 - ESSENTIAL (PRIMARY) HYPERTENSION (3) ESPINOZA (acute kidney injury) Assessment/Plan: renal consulted and following u/s of kidneys unremarkable per report. Code(s): N17.9 - ACUTE KIDNEY FAILURE, UNSPECIFIED (4) Rhabdomyolysis Assessment/Plan: improving from 2400k to 500k. fluids d/c secondary to congestive changes on chest xray. renal following. Code(s): M62.82 - RHABDOMYOLYSIS (5) Elevated troponin Assessment/Plan: troponin 3.22 > 1.09 EKG 11/14/18, left atrial enlargement, RBBB, LVH, LAD Echo11/14/18: Normal LV size and function, abnormal diastolic relaxation. continue metoprolol, asa cardiology following Code(s): R79.89 - OTHER SPECIFIED ABNORMAL FINDINGS OF BLOOD CHEMISTRY (6) Leukocytosis Assessment/Plan: wbc increased from yesterday, and persists. will send for mri to rule out osteo of left great toe. blood cultures, urine cultures negative to date. lactic acid within normal limits. ID consulted for further recommendations. Code(s): D72.829 - ELEVATED WHITE BLOOD CELL COUNT, UNSPECIFIED (7) Prophylactic measure Assessment/Plan: heparin physical therapy bowel regimen discharge to rehab/planning full code Code(s): Z29.9 - ENCOUNTER FOR PROPHYLACTIC MEASURES, UNSPECIFIED Visit type - Emergency Visit Emergency Visit: Yes ED Registration Date: 11/14/18 Care time: The patient presented to the Emergency Department on the above date and was hospitalized for further evaluation of their emergent condition. - New Patient This patient is new to me today: No - Critical Care Critical Care patient: No - Discharge Referral Referred to [facility] Med P.C.: No
[2018-11-21] MEDS: ATORVASTATIN CA 80 MG TABLET (FP) PO SCH (22:23)
[2018-11-22] MEDS ORDERED: metoPROLOL SUCCINATE 25 MG TAB.SR.24H (FP) PO ONE (01:15)
[2018-11-22] MEDS: INSULIN SLIDING SCALE (NOVOLOG) 1 VIAL SQ SCH ×4 (05:55→22:33)
[2018-11-22] MEDS: HEPARIN NA (PORCINE) 5,000 UNITS/ML 1ML VIAL SQ SCH ×3 (05:55→22:33)
[2018-11-22] MEDS: amLODIPine BESYLATE 5 MG TABLET (FP) PO SCH ×2 (07:01→10:00)
[2018-11-22] MEDS: LISINOPRIL 5 MG TABLET (FP) PO SCH ×2 (07:01→10:00)
[2018-11-22] MEDS: ASPIRIN COATED 81 MG TABLET.EC PO SCH (09:57)
[2018-11-22] MEDS: COLLAGENASE CLOSTRIDIUM HIST. 30 GRAMS TUBE TP SCH (10:00)
--- NOTE | 2018-11-22 10:48 | PN ---
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 (short form) - Note 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: FUV left big toe. vss +wound left plantar hallux, -drainage, -mal odor, MRI negative for om wound left hallux Constinue maggyyl to wound. Should follow in wound care after DC. Will follow.
--- NOTE | 2018-11-22 11:23 | PN ---
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 (short form) - Note 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: Awake and alert. NAD. No acute events documented overnight. Afebrile. Intake & Output 11/19/18 11/20/18 11/21/18 11/22/18 23:59 23:59 23:59 23:59 Intake Total 710 860 240 370 Output Total 1100 1050 600 Balance -390 -190 240 -230 Last Vital Signs Temp Pulse Resp BP Pulse Ox 98.8 F 85 18 156/98 97 11/22/18 06:00 11/22/18 06:00 11/22/18 06:00 11/22/18 06:00 11/21/18 21:00 Active Medications Acetaminophen (Tylenol -) 650 mg PO Q6H PRN PRN Reason: FEVER Last Admin: 11/19/18 21:44 Dose: 650 mg Amlodipine Besylate (Norvasc -) 10 mg PO DAILY [facility] Last Admin: 11/22/18 10:00 Dose: Not Given Aspirin (Ecotrin -) 81 mg PO DAILY [facility] Last Admin: 11/22/18 09:57 Dose: 81 mg Atorvastatin Calcium (Lipitor -) 80 mg PO HS [facility] Last Admin: 11/21/18 22:23 Dose: 80 mg Collagenase (Santyl -) 1 applic TP DAILY [facility]; Protocol Last Admin: 11/22/18 10:00 Dose: 1 applic Heparin Sodium (Porcine) (Heparin -) 5,000 unit SQ TID [facility] Last Admin: 11/22/18 05:55 Dose: 5,000 unit Insulin Aspart (Novolog Vial Sliding Scale -) 1 vial SQ Q6H [facility]; Protocol Last Admin: 11/22/18 10:43 Dose: 2 unit Lisinopril (Prinivil) 5 mg PO DAILY [facility] Last Admin: 11/22/18 10:00 Dose: Not Given Metoprolol Succinate (Toprol Xl -) 50 mg PO DAILY [facility] Last Admin: 11/22/18 10:00 Dose: Not Given Constitutional: Yes: NAD Eyes: Yes: WNL HENT: Yes: WNL Neck: Yes: WNL Cardiovascular: Yes: Regular Rate and Rhythm, S1, S2 Respiratory: Yes: Diminished at the bases, few scattered rhonhci Gastrointestinal: Yes: Normal Bowel Sounds, Soft Extremities: Yes: WNL Edema: No Neurological: Yes: awake and alert Labs: Laboratory Results - last 24 hr 11/21/18 11/21/18 11/21/18 11:36 17:16 22:21 POC Glucometer 219 202 215 11/22/18 11/22/18 11/22/18 01:45 05:54 10:42 POC Glucometer 178 179 245 Assessment/Plan Problem List - Problems (1) ESPINOZA (acute kidney injury) Code(s): N17.9 - ACUTE KIDNEY FAILURE, UNSPECIFIED (2) CVA (cerebral vascular accident) Code(s): I63.9 - CEREBRAL INFARCTION, UNSPECIFIED Qualifiers: Laterality of affected vessel: left (3) Elevated troponin Code(s): R79.89 - OTHER SPECIFIED ABNORMAL FINDINGS OF BLOOD CHEMISTRY (4) Hypertension Code(s): I10 - ESSENTIAL (PRIMARY) HYPERTENSION (5) Rhabdomyolysis Code(s): M62.82 - RHABDOMYOLYSIS 6 ? ASPIRATION Assessment/Plan PT and increase ambulation, if not able then Incentive Spirometry if able O2 as needed No smoking VTE prophylaxis Aspiration precautions Outpatient PFTs Dr Watson Problem List - Problems (1) ESPINOZA (acute kidney injury) Code(s): N17.9 - ACUTE KIDNEY FAILURE, UNSPECIFIED (2) CVA (cerebral vascular accident) Code(s): I63.9 - CEREBRAL INFARCTION, UNSPECIFIED Qualifiers: Laterality of affected vessel: left (3) Elevated troponin Code(s): R79.89 - OTHER SPECIFIED ABNORMAL FINDINGS OF BLOOD CHEMISTRY (4) Hypertension Code(s): I10 - ESSENTIAL (PRIMARY) HYPERTENSION (5) Rhabdomyolysis Code(s): M62.82 - RHABDOMYOLYSIS
[2018-11-22 13:09] LABS: BASO % 0.4 % (0-2.0); EOS % 3.4 % (0-4.5); HEMATOCRIT 41.6 % (35.4-49); HEMOGLOBIN 13.5 GM/dL (11.7-16.9); LYMPH % 8.5 % (8-40); MCH 28.2 pg (25.7-33.7); MCHC 32.5 g/dl (32.0-35.9); MEAN CELL VOLUME 86.7 fl (80-96); MEAN PLT VOLUME 9.8 fl (7.5-11.1); MONO % 5.8 % (3.8-10.2); NEUT % 81.9 % (42.8-82.8); PLATELET COUNT 227 K/MM3 (134-434); RDW 14.2 % (11.9-15.9); WHITE BLOOD COUNT 13.6 K/mm3 (4.0-10.0)
[2018-11-22 13:41] LABS: ALBUMIN 2.6 g/dl (3.4-5.0); BILIRUBIN,TOTAL 0.9 mg/dL (0.2-1); BLOOD UREA NITROGEN 29.4 mg/dL (7-18); CALCIUM 8.7 mg/dL (8.5-10.1); CREATININE 1.4 mg/dL (0.55-1.3); TOT PROT 7.7 g/dl (6.4-8.2)
--- NOTE | 2018-11-22 13:49 | PN ---
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, Physician History of Present Illness: patient stable no new issues wbc is increasing mri seen and report noted - Current Medication List Current Medications: Active Medications Acetaminophen (Tylenol -) 650 mg PO Q6H PRN PRN Reason: FEVER Last Admin: 11/19/18 21:44 Dose: 650 mg Amlodipine Besylate (Norvasc -) 10 mg PO DAILY [facility] Last Admin: 11/22/18 10:00 Dose: Not Given Aspirin (Ecotrin -) 81 mg PO DAILY [facility] Last Admin: 11/22/18 09:57 Dose: 81 mg Atorvastatin Calcium (Lipitor -) 80 mg PO HS [facility] Last Admin: 11/21/18 22:23 Dose: 80 mg Collagenase (Santyl -) 1 applic TP DAILY [facility]; Protocol Last Admin: 11/22/18 10:00 Dose: 1 applic Heparin Sodium (Porcine) (Heparin -) 5,000 unit SQ TID [facility] Last Admin: 11/22/18 13:14 Dose: 5,000 unit Insulin Aspart (Novolog Vial Sliding Scale -) 1 vial SQ Q6H [facility]; Protocol Last Admin: 11/22/18 10:43 Dose: 2 unit Lisinopril (Prinivil) 5 mg PO DAILY [facility] Last Admin: 11/22/18 10:00 Dose: Not Given Metoprolol Succinate (Toprol Xl -) 50 mg PO DAILY [facility] Last Admin: 11/22/18 10:00 Dose: Not Given - Objective Vital Signs: Vital Signs Temperature 99 F 11/22/18 10:00 Pulse Rate 75 11/22/18 10:00 Respiratory Rate 18 11/22/18 10:00 Blood Pressure 113/69 11/22/18 10:00 O2 Sat by Pulse Oximetry (%) 95 11/22/18 09:00 Constitutional: Yes: No Distress, Calm Cardiovascular: Yes: S1, S2 Respiratory: Yes: Regular, CTA Bilaterally Gastrointestinal: Yes: Normal Bowel Sounds, Soft Musculoskeletal: Yes: WNL Extremities: Yes: WNL Wound/Incision: Yes: Open to air Neurological: Yes: Alert, Oriented Psychiatric: Yes: Alert, Oriented Labs: CBC, BMP 11/22/18 12:40 11/22/18 12:40 INR, PTT INR 1.09 (0.83-1.09) 11/14/18 00:00 Assessment/Plan Problem List - Problems (1) ESPINOZA (acute kidney injury) Code(s): N17.9 - ACUTE KIDNEY FAILURE, UNSPECIFIED (2) CVA (cerebral vascular accident) Code(s): I63.9 - CEREBRAL INFARCTION, UNSPECIFIED Qualifiers: Laterality of affected vessel: left (3) Elevated troponin Code(s): R79.89 - OTHER SPECIFIED ABNORMAL FINDINGS OF BLOOD CHEMISTRY (4) Hypertension Code(s): I10 - ESSENTIAL (PRIMARY) HYPERTENSION (5) Rhabdomyolysis Code(s): M62.82 - RHABDOMYOLYSIS leukocytosis plan i am going to start patient on augmentin wound care as per podiatry
[2018-11-22 14:13] LABS: MAGNESIUM 2.1 mg/dL (1.8-2.4)
--- NOTE | 2018-11-22 14:13 | PN ---
Physical Exam: SUBJECTIVE: Patient seen and examined at the bedside. OBJECTIVE: fevers resolved, leukocytosis persists @ 13.6. lactic acid, blood cultures negative. seen by podiatry for left great toe ulceration, mri negative for osteo Patient is a 63 year old male with a significant past medical history of hypertension, hld who was brought into the ED on 11/14/2018 via EMS after being found down in his apartment. He has been reportedly on the floor for apx 5 days. He was found to have a non hemorrhagic right basal ganglia striacap infarct and an elevated CPK on admission. His troponins were also elevated on admission. Vital Signs Period Temp Pulse Resp BP Sys/Gibson Pulse Ox Last 24 Hr 97.8 F-99.4 F 75-94 18-20 113-178/69-98 95-97 GENERAL: slurred speech but now more comprehensible. Awake, alert, and fully oriented, withdrawn. HEAD: Normal with no signs of trauma EYES: PERRL, extraocular movements intact, sclera anicteric, conjunctiva clear. No ptosis. ENT: Ears normal, nares patent, oropharynx clear without exudates NECK: Trachea midline, full range of motion, supple. LUNGS: diminished bilaterally on 2 liters prn HEART: Regular rate and rhythm, monitoring coordinator: shows tachycardia 100, ekg: sinus rhythm, with PVCs. controlled rate MUSCULOSKELETAL: unable to move left arm. No bony deformities or tenderness, no step offs appreciated on the spine. No CVA tenderness. ABDOMEN: Soft, nontender, nondistended EXTREMITIES: left wallis 1 cm circular wound no active bleeding or drainage. lower ext trace edema (left > right), left great toe round posterior ulcer-dry NEUROLOGICAL: gait not observed. left sided weakness PSYCH: Normal mood, normal affect. Laboratory Results - last 24 hr 11/21/18 11/21/18 11/22/18 17:16 22:21 01:45 WBC RBC Hgb Hct MCV MCH MCHC RDW Plt Count MPV Absolute Neuts (auto) Neutrophils % Lymphocytes % Monocytes % Eosinophils % Basophils % Nucleated RBC % Sodium Potassium Chloride Carbon Dioxide Anion Gap BUN Creatinine Est GFR (CKD-EPI)AfAm Est GFR (CKD-EPI)NonAf POC Glucometer 202 215 178 Random Glucose Calcium Total Bilirubin AST ALT Alkaline Phosphatase Total Protein Albumin 11/22/18 11/22/18 11/22/18 05:54 10:42 12:40 WBC 13.6 H RBC 4.80 Hgb 13.5 Hct 41.6 MCV 86.7 MCH 28.2 MCHC 32.5 RDW 14.2 Plt Count 227 D MPV 9.8 Absolute Neuts (auto) 11.1 H Neutrophils % 81.9 Lymphocytes % 8.5 D Monocytes % 5.8 Eosinophils % 3.4 Basophils % 0.4 Nucleated RBC % 0 Sodium Potassium Chloride Carbon Dioxide Anion Gap BUN Creatinine Est GFR (CKD-EPI)AfAm Est GFR (CKD-EPI)NonAf POC Glucometer 179 245 Random Glucose Calcium Total Bilirubin AST ALT Alkaline Phosphatase Total Protein Albumin 11/22/18 12:40 WBC RBC Hgb Hct MCV MCH MCHC RDW Plt Count MPV Absolute Neuts (auto) Neutrophils % Lymphocytes % Monocytes % Eosinophils % Basophils % Nucleated RBC % Sodium 138 Potassium 5.0 Chloride 103 Carbon Dioxide 26 Anion Gap 10 BUN 29.4 H Creatinine 1.4 H Est GFR (CKD-EPI)AfAm 60.68 Est GFR (CKD-EPI)NonAf 52.35 POC Glucometer Random Glucose 253 H Calcium 8.7 Total Bilirubin 0.9 AST 51 H ALT 46 Alkaline Phosphatase 103 Total Protein 7.7 Albumin 2.6 L Active Medications Generic Name Dose Route Start Last Admin Trade Name Freq PRN Reason Stop Dose Admin Acetaminophen 650 mg 11/19/18 21:12 11/19/18 21:44 Tylenol - PO 650 mg Q6H PRN Administration FEVER Amlodipine Besylate 10 mg 11/17/18 14:15 11/22/18 10:00 Norvasc - PO Not Given DAILY [facility] Amoxicillin/Clavulanate Potassium 1 tab 11/22/18 17:30 Augmentin - 500mg Tablet PO BID@0800,1730 [facility] Aspirin 81 mg 11/14/18 10:00 11/22/18 09:57 Ecotrin - PO 81 mg DAILY [facility] Administration Atorvastatin Calcium 80 mg 11/14/18 22:00 11/21/18 22:23 Lipitor - PO 80 mg HS [facility] Administration Collagenase 1 applic 11/21/18 13:00 11/22/18 10:00 Santyl - TP 1 applic DAILY [facility] Administration Protocol Heparin Sodium (Porcine) 5,000 unit 11/14/18 06:00 11/22/18 13:14 Heparin - SQ 5,000 unit TID [facility] Administration Insulin Aspart 1 vial 10/09/19 04:15 11/22/18 10:43 Novolog Vial Sliding Scale - SQ 2 unit Q6H [facility] Administration Protocol Lisinopril 5 mg 11/21/18 10:00 11/22/18 10:00 Prinivil PO Not Given DAILY [facility] Metoprolol Succinate 50 mg 11/21/18 15:11 11/22/18 10:00 Toprol Xl - PO Not Given DAILY [facility] ASSESSMENT/PLAN: Problem List - Problems (1) CVA (cerebral vascular accident) Assessment/Plan: head ct head showed right basal ganglia ischemic lesion. MRI of brain confirmed stroke and carotid u/s with 50-69% percent stenosis. seen by vascular and no interventions currently planned. on lipitor 80, asa 81. PT following. had swallow test and mbs. recommended ground diet with thin liquids. neurology following discharge planning to rehab initiated by OSWALDO Code(s): I63.9 - CEREBRAL INFARCTION, UNSPECIFIED Qualifiers: Laterality of affected vessel: left (2) Hypertension Assessment/Plan: elevated in the setting on recent stroke on metoprolol 50 xl, norvasc 10 and lisinopril 5mg. Code(s): I10 - ESSENTIAL (PRIMARY) HYPERTENSION (3) ESPINOZA (acute kidney injury) Assessment/Plan: renal consulted and following u/s of kidneys unremarkable per report. Code(s): N17.9 - ACUTE KIDNEY FAILURE, UNSPECIFIED (4) Rhabdomyolysis Assessment/Plan: improving from 2400k to 500k. fluids d/c secondary to congestive changes on chest xray. renal following. Code(s): M62.82 - RHABDOMYOLYSIS (5) Elevated troponin Assessment/Plan: troponin 3.22 > 1.09 EKG 11/14/18, left atrial enlargement, RBBB, LVH, LAD Echo11/14/18: Normal LV size and function, abnormal diastolic relaxation. continue metoprolol, asa cardiology following Code(s): R79.89 - OTHER SPECIFIED ABNORMAL FINDINGS OF BLOOD CHEMISTRY (6) Leukocytosis Assessment/Plan: wbc increased from yesterday, and persists. negative for osteo of left great toe. started on santyl for this wound to be applied daily. blood cultures, urine cultures negative to date. lactic acid within normal limits. ID consulted and started on augmentin 500mg bid x 7 days. cleared for d/c by ID. Patient to have CBC repeated as an outpatient. Code(s): D72.829 - ELEVATED WHITE BLOOD CELL COUNT, UNSPECIFIED (7) Prophylactic measure Assessment/Plan: heparin physical therapy bowel regimen discharge to rehab/planning full code Code(s): Z29.9 - ENCOUNTER FOR PROPHYLACTIC MEASURES, UNSPECIFIED Visit type - Emergency Visit Emergency Visit: Yes ED Registration Date: 11/14/18 Care time: The patient presented to the Emergency Department on the above date and was hospitalized for further evaluation of their emergent condition. - New Patient This patient is new to me today: No - Critical Care Critical Care patient: No - Discharge Referral Referred to [facility] Med P.C.: No
--- NOTE | 2018-11-22 14:18 | PN ---
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 (short form) - Note 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: 63 year old male history of HTN,HLD,DM, came with left sided hemiparesis. Patient was lying on the floor for five days, when he was found laying on fl[place]. Paitent never had stroke, he did have ? cad. Patient had ct head showed right basal ganglia ishcemic lesion. He is waiting for mri. He had speech and passed swallowing evaluation. mri of brain confirmed stroke and carotid ultrasound unremarkable. No new syptoms, waiting for placement at [facility] , patient passed swalloing and on chopped wbc is going up and was started on augmentin by ID NEUROLOGICAL EXAMINATION Alert oriented x 2, speech is dysarthric, neck is Supple left sided facial palsy, eomi, left dense hemiparesis ct head right basal ganglia infarct, mri confirmed right basal ganglia stroke left ica showed moderate stenosis Assessment/Plan Right mca stroke ( right basal ganglia) risk factor DM,HTN. asymptomatic left ica moderate stenosis PLAN: continue aspirin and statin PT and [facility] Thanking you so much Beau Young MD
--- NOTE | 2018-11-22 15:59 | PN ---
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 (short form) - Note 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: Renal follow up for ESPINOZA Seen and examined at the bedside awake and alert no acute complaints Vital Signs Temperature 97.8 F 11/22/18 13:53 Pulse Rate 78 11/22/18 13:53 Respiratory Rate 16 11/22/18 13:53 Blood Pressure 132/72 11/22/18 13:53 O2 Sat by Pulse Oximetry (%) 95 11/22/18 09:00 Intake & Output 11/19/18 11/20/18 11/21/18 11/22/18 23:59 23:59 23:59 23:59 Intake Total 710 860 240 740 Output Total 1100 1050 600 Balance -390 -190 240 140 NAD on NC O2 awake and alert neck supple RRR CTA soft NT/ND no LE edema CBC, BMP 11/22/18 12:40 11/22/18 12:40 Current Medications Acetaminophen (Tylenol -) 650 mg PO Q6H PRN PRN Reason: FEVER Last Admin: 11/19/18 21:44 Dose: 650 mg Amlodipine Besylate (Norvasc -) 10 mg PO DAILY [facility] Last Admin: 11/22/18 10:00 Dose: Not Given Amoxicillin/Clavulanate Potassium (Augmentin - 500mg Tablet) 1 tab PO BID@0800, 1730 [facility] Aspirin (Ecotrin -) 81 mg PO DAILY [facility] Last Admin: 11/22/18 09:57 Dose: 81 mg Atorvastatin Calcium (Lipitor -) 80 mg PO HS [facility] Last Admin: 11/21/18 22:23 Dose: 80 mg Collagenase (Santyl -) 1 applic TP DAILY [facility]; Protocol Last Admin: 11/22/18 10:00 Dose: 1 applic Heparin Sodium (Porcine) (Heparin -) 5,000 unit SQ TID [facility] Last Admin: 11/22/18 13:14 Dose: 5,000 unit Insulin Aspart (Novolog Vial Sliding Scale -) 1 vial SQ Q6H [facility]; Protocol Last Admin: 11/22/18 10:43 Dose: 2 unit Lisinopril (Prinivil) 5 mg PO DAILY [facility] Last Admin: 11/22/18 10:00 Dose: Not Given Metoprolol Succinate (Toprol Xl -) 50 mg PO DAILY [facility] Last Admin: 11/22/18 10:00 Dose: Not Given 63 year old gentleman with history of hypertension and DM type 2 who presented from home with AMS and fall and found to have acute CVA and rhabdo with worsening renal function. 1. Acute Renal Injury likely due to pigment injury from rhabdomyolysis vs. transient renal hypoprofusion 2. Acute CVA 3. Rhabdomyolysis 4. Hypertension 4. DM type 2 Renal function now improved and stable Renal US showed no obstruction or stones. Trend renal function and electrolytes daily can consider addition of ACEi for better BP control Neurology follow up Thank you Eusebio Fritz DO
[2018-11-22] MEDS: AMOX TR/POT CLAV 500MG/125MG TABLETS (FP) PO SCH (16:40)
[2018-11-22] MEDS ORDERED: PT OWN MED DRAWER 7, Y5N ONE (17:27)
[2018-11-22] MEDS: ATORVASTATIN CA 80 MG TABLET (FP) PO SCH (22:33)
[2018-11-23] MEDS: INSULIN SLIDING SCALE (NOVOLOG) 1 VIAL SQ SCH ×2 (05:41→10:43)
[2018-11-23] MEDS: HEPARIN NA (PORCINE) 5,000 UNITS/ML 1ML VIAL SQ SCH ×2 (05:42→13:31)
[2018-11-23 06:30] LABS: BASO % 0.5 % (0-2.0); EOS % 3.8 % (0-4.5); HEMATOCRIT 38.6 % (35.4-49); LYMPH % 11.4 % (8-40); MCH 28.8 pg (25.7-33.7); MCHC 33.6 g/dl (32.0-35.9); MEAN CELL VOLUME 85.6 fl (80-96); MEAN PLT VOLUME 9.5 fl (7.5-11.1); NEUT % 79.3 % (42.8-82.8); PLATELET COUNT 209 K/MM3 (134-434); RBC 4.51 M/mm3 (4.00-5.60); RDW 13.8 % (11.9-15.9); WHITE BLOOD COUNT 13.2 K/mm3 (4.0-10.0)
[2018-11-23 06:51] LABS: BLOOD UREA NITROGEN 29.6 mg/dL (7-18); CALCIUM 8.8 mg/dL (8.5-10.1); CREATININE 1.4 mg/dL (0.55-1.3); MAGNESIUM 2.1 mg/dL (1.8-2.4); PHOSPHOROUS 3.7 mg/dL (2.5-4.9); POTASSIUM 4.6 mmol/L (3.5-5.1)
[2018-11-23] MEDS ORDERED: PT OWN MED DRAWER 7, Y5N ONE (08:55)
[2018-11-23] MEDS: AMOX TR/POT CLAV 500MG/125MG TABLETS (FP) PO SCH (08:58)
[2018-11-23] MEDS: amLODIPine BESYLATE 5 MG TABLET (FP) PO SCH (09:02)
[2018-11-23] MEDS: ASPIRIN COATED 81 MG TABLET.EC PO SCH (09:02)
[2018-11-23] MEDS: COLLAGENASE CLOSTRIDIUM HIST. 30 GRAMS TUBE TP SCH (09:02)
[2018-11-23] MEDS ORDERED: LISINOPRIL 10 MG TABLET (FP) PO SCH (10:00)
[2018-11-23 11:11] VITALS: TEMP 98.4
--- NOTE | 2018-11-23 11:43 | PN ---
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, Physician History of Present Illness: PULMONARY AWAKE,NO DISTRESS,-CONGESTION,-SOB - Current Medication List Current Medications: Active Medications Acetaminophen (Tylenol -) 650 mg PO Q6H PRN PRN Reason: FEVER Last Admin: 11/19/18 21:44 Dose: 650 mg Amlodipine Besylate (Norvasc -) 10 mg PO DAILY [facility] Last Admin: 11/23/18 09:02 Dose: 10 mg Amoxicillin/Clavulanate Potassium (Augmentin - 500mg Tablet) 1 tab PO BID@0800, 1730 [facility] Last Admin: 11/23/18 08:58 Dose: 1 tab Aspirin (Ecotrin -) 81 mg PO DAILY [facility] Last Admin: 11/23/18 09:02 Dose: 81 mg Atorvastatin Calcium (Lipitor -) 80 mg PO HS [facility] Last Admin: 11/22/18 22:33 Dose: 80 mg Collagenase (Santyl -) 1 applic TP DAILY [facility]; Protocol Last Admin: 11/23/18 09:02 Dose: 1 applic Heparin Sodium (Porcine) (Heparin -) 5,000 unit SQ TID [facility] Last Admin: 11/23/18 05:42 Dose: 5,000 unit Insulin Aspart (Novolog Vial Sliding Scale -) 1 vial SQ Q6H [facility]; Protocol Last Admin: 11/23/18 10:43 Dose: 2 unit Lisinopril (Prinivil) 10 mg PO DAILY [facility] Last Admin: 11/23/18 09:02 Dose: 10 mg Metoprolol Succinate (Toprol Xl -) 50 mg PO DAILY [facility] Last Admin: 11/23/18 09:02 Dose: 50 mg - Objective Vital Signs: Vital Signs Temperature 98.4 F 11/23/18 10:00 Pulse Rate 86 11/23/18 10:00 Respiratory Rate 20 11/23/18 10:00 Blood Pressure 163/93 11/23/18 10:00 O2 Sat by Pulse Oximetry (%) 98 11/23/18 09:00 Constitutional: Yes: Well Nourished, Calm Eyes: Yes: WNL HENT: Yes: WNL Neck: Yes: WNL Cardiovascular: Yes: Regular Rate and Rhythm, S1, S2 Respiratory: Yes: Diminished Gastrointestinal: Yes: Normal Bowel Sounds, Soft Extremities: Yes: WNL Edema: No Labs: CBC, BMP 11/23/18 05:27 11/23/18 05:27 INR, PTT INR 1.09 (0.83-1.09) 11/14/18 00:00 Assessment/Plan Problem List - Problems (1) ESPINOZA (acute kidney injury) Code(s): N17.9 - ACUTE KIDNEY FAILURE, UNSPECIFIED (2) CVA (cerebral vascular accident) Code(s): I63.9 - CEREBRAL INFARCTION, UNSPECIFIED Qualifiers: Laterality of affected vessel: left (3) Elevated troponin Code(s): R79.89 - OTHER SPECIFIED ABNORMAL FINDINGS OF BLOOD CHEMISTRY (4) Hypertension Code(s): I10 - ESSENTIAL (PRIMARY) HYPERTENSION (5) Rhabdomyolysis Code(s): M62.82 - RHABDOMYOLYSIS 6 ? ASPIRATION Assessment/Plan PT and increase ambulation, if not able then Incentive Spirometry O2 as needed No smoking VTE prophylaxis Aspiration precautions Outpatient PFTs DR KURTZ
--- NOTE | 2018-11-23 12:43 | DS ---
Physical Exam: SUBJECTIVE: Patient seen and examined at the bedside. OBJECTIVE: endy resolved, leukocytosis persists @ 13.4. lactic acid, blood cultures negative. seen by podiatry for left great toe ulceration, mri negative for osteo Patient is a 63 year old male with a significant past medical history of hypertension, hld who was brought into the ED on 11/14/2018 via EMS after being found down in his apartment. He has been reportedly on the floor for apx 5 days. He was found to have a non hemorrhagic right basal ganglia striacap infarct and an elevated CPK on admission. His troponins were also elevated on admission. Vital Signs Period Temp Pulse Resp BP Sys/Gibson Pulse Ox Last 24 Hr 97.3 F-98.8 F 78-89 16-20 132-163/72-98 95-98 PHYSICAL EXAM GENERAL: The patient is awake, alert, in no acute distress. at times he appears withdrawn HEAD: Normal with no signs of trauma. EYES: PERRL, extraocular movements intact, sclera anicteric, conjunctiva clear. ENT: Ears normal, nares patent, oropharynx clear without exudates, moist mucous membranes. NECK: Trachea midline, full range of motion, supple. LUNGS: Breath sounds equal, diminished to auscultation bilaterally HEART: Regular rate and rhythm ABDOMEN: Soft, nontender, nondistended, normoactive bowel sounds MUSCULOSKELETAL: unable to move left arm. No bony deformities or tenderness, no step offs appreciated on the spine. No CVA tenderness. ABDOMEN: Soft, nontender, nondistended EXTREMITIES: left wallis 1 cm circular wound no active bleeding or drainage. lower ext trace edema (left > right), left great toe round posterior ulcer-dry on santyl NEUROLOGICAL: gait not observed. left sided weakness, participating in PT daily. PSYCH: Normal mood, normal affect. LABS Laboratory Results - last 24 hr 11/22/18 11/22/18 11/22/18 12:40 12:40 16:41 WBC 13.6 H RBC 4.80 Hgb 13.5 Hct 41.6 MCV 86.7 MCH 28.2 MCHC 32.5 RDW 14.2 Plt Count 227 D MPV 9.8 Absolute Neuts (auto) 11.1 H Neutrophils % 81.9 Lymphocytes % 8.5 D Monocytes % 5.8 Eosinophils % 3.4 Basophils % 0.4 Nucleated RBC % 0 Sodium 138 Potassium 5.0 Chloride 103 Carbon Dioxide 26 Anion Gap 10 BUN 29.4 H Creatinine 1.4 H Est GFR (CKD-EPI)AfAm 60.68 Est GFR (CKD-EPI)NonAf 52.35 POC Glucometer 213 Random Glucose 253 H Calcium 8.7 Phosphorus Magnesium 2.1 Total Bilirubin 0.9 AST 51 H ALT 46 Alkaline Phosphatase 103 Total Protein 7.7 Albumin 2.6 L 11/22/18 11/23/18 11/23/18 22:31 01:22 05:27 WBC RBC Hgb Hct MCV MCH MCHC RDW Plt Count MPV Absolute Neuts (auto) Neutrophils % Lymphocytes % Monocytes % Eosinophils % Basophils % Nucleated RBC % Sodium 137 Potassium 4.6 Chloride 102 Carbon Dioxide 27 Anion Gap 8 BUN 29.6 H Creatinine 1.4 H Est GFR (CKD-EPI)AfAm 60.68 Est GFR (CKD-EPI)NonAf 52.35 POC Glucometer 211 198 Random Glucose 194 H Calcium 8.8 Phosphorus 3.7 Magnesium 2.1 Total Bilirubin AST ALT Alkaline Phosphatase Total Protein Albumin 11/23/18 11/23/18 11/23/18 05:27 05:35 10:42 WBC 13.2 H RBC 4.51 Hgb 13.0 Hct 38.6 MCV 85.6 MCH 28.8 MCHC 33.6 RDW 13.8 Plt Count 209 MPV 9.5 Absolute Neuts (auto) 10.5 H Neutrophils % 79.3 Lymphocytes % 11.4 D Monocytes % 5.0 Eosinophils % 3.8 Basophils % 0.5 Nucleated RBC % 0 Sodium Potassium Chloride Carbon Dioxide Anion Gap BUN Creatinine Est GFR (CKD-EPI)AfAm Est GFR (CKD-EPI)NonAf POC Glucometer 195 225 Random Glucose Calcium Phosphorus Magnesium Total Bilirubin AST ALT Alkaline Phosphatase Total Protein Albumin HOSPITAL COURSE: Date of Admission:11/14/18 Date of Discharge: 11/23/18 Minutes to complete discharge: 45 Discharge Summary Problems reviewed: Yes Reason For Visit: CEREBROVASCULAR ACCIDENT (CVA) Current Active Problems ESPINOZA (acute kidney injury) (Acute) CVA (cerebral vascular accident) (Acute) Elevated troponin (Acute) Hypertension (Acute) Leukocytosis (Acute) Prophylactic measure (Acute) Rhabdomyolysis (Acute) Condition: Improved - Instructions Diet, Activity, Other Instructions: Discharge to [facility] Continue Augmentin 500mg for leukocytosis for 7 days total (started 11/22/2018) . Please repeat CBC to monitor white count. Referrals: Beau Young MD [Staff Physician] - Disposition: LONGTERM FACILITY - Home Medications Comprehensive Discharge Medication List: Ambulatory Orders Acetaminophen [Tylenol .Regular Strength -] 650 mg PO Q6H PRN tablet 11/22/18 Amlodipine Besylate [Norvasc -] 10 mg PO DAILY tablet 11/22/18 Amox-Tr/K Cl [Augmentin 500-125mg Tablet -] 1 tab PO BID@0800,1730 tablet 11/22 Aspirin Coated [Ecotrin -] 81 mg PO DAILY tablet.ec 11/22/18 Atorvastatin Ca [Lipitor] 80 mg PO HS tablet 11/22/18 Collagenase Clostridium Hist. [Santyl -] 1 applic TP DAILY tube 11/22/18 Heparin - 5,000 unit SQ TID vial 11/22/18 Insulin Sliding Scale [Novolog Vial Sliding Scale -] 1 vial SQ Q6H units Lisinopril [Prinivil] 5 mg PO DAILY tablet 11/22/18 Metoprolol Succinate [Toprol XL -] 50 mg PO DAILY tab.sr.24h 11/22/18 Lisinopril [Prinivil] 10 mg PO DAILY tablet 11/23/18 Problem List - Problems (1) CVA (cerebral vascular accident) Assessment/Plan: head ct head showed right basal ganglia ischemic lesion. MRI of brain confirmed stroke and carotid u/s with 50-69% percent stenosis. seen by vascular and no interventions currently planned. on lipitor 80, asa 81. PT following. had swallow test and mbs. recommended ground diet with thin liquids. neurology following discharge planning to rehab initiated by [facility] Code(s): I63.9 - CEREBRAL INFARCTION, UNSPECIFIED Qualifiers: Laterality of affected vessel: left (2) Hypertension Assessment/Plan: bp not 160s/90s today, goal is systolic <140s. increase metoprolol to 75mg daily on metoprolol 75 xl, norvasc 10 and lisinopril 10mg. Code(s): I10 - ESSENTIAL (PRIMARY) HYPERTENSION (3) ESPINOZA (acute kidney injury) Assessment/Plan: renal consulted and following u/s of kidneys unremarkable per report. Code(s): N17.9 - ACUTE KIDNEY FAILURE, UNSPECIFIED (4) Rhabdomyolysis Assessment/Plan: improving from 2400k to 500k. fluids d/c secondary to congestive changes on chest xray. renal following. Code(s): M62.82 - RHABDOMYOLYSIS (5) Elevated troponin Assessment/Plan: troponin 3.22 > 1.09 EKG 11/14/18, left atrial enlargement, RBBB, LVH, LAD Echo11/14/18: Normal LV size and function, abnormal diastolic relaxation. continue metoprolol, asa cardiology following Code(s): R79.89 - OTHER SPECIFIED ABNORMAL FINDINGS OF BLOOD CHEMISTRY (6) Leukocytosis Assessment/Plan: wbc increased from yesterday, and persists. negative for osteo of left great toe. started on santyl for this wound to be applied daily. blood cultures, urine cultures negative to date. lactic acid within normal limits. ID consulted and started on augmentin 500mg bid x 7 days. cleared for d/c by ID. Patient to have CBC repeated as an outpatient. Code(s): D72.829 - ELEVATED WHITE BLOOD CELL COUNT, UNSPECIFIED (7) Prophylactic measure Assessment/Plan: heparin physical therapy bowel regimen discharge to rehab/planning full code Code(s): Z29.9 - ENCOUNTER FOR PROPHYLACTIC MEASURES, UNSPECIFIED This patient is new to me today: No Emergency Visit: Yes ED Registration Date: 11/14/18 Care time: The patient presented to the Emergency Department on the above date and was hospitalized for further evaluation of their emergent condition. Critical Care patient: No - Discharge Referral Referred to [facility] Med [facility].C.: No
[2018-11-23] MEDS ORDERED: metoPROLOL SUCCINATE 25 MG TAB.SR.24H (FP) PO ONE (13:30)
--- NOTE | 2018-11-23 13:53 | PN ---
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, Physician History of Present Illness: patient stable tip of the tip of the penis is necrotic - Current Medication List Current Medications: Active Medications Acetaminophen (Tylenol -) 650 mg PO Q6H PRN PRN Reason: FEVER Last Admin: 11/19/18 21:44 Dose: 650 mg Amlodipine Besylate (Norvasc -) 10 mg PO DAILY [facility] Last Admin: 11/23/18 09:02 Dose: 10 mg Amoxicillin/Clavulanate Potassium (Augmentin - 500mg Tablet) 1 tab PO BID@0800, 1730 [facility] Last Admin: 11/23/18 08:58 Dose: 1 tab Aspirin (Ecotrin -) 81 mg PO DAILY [facility] Last Admin: 11/23/18 09:02 Dose: 81 mg Atorvastatin Calcium (Lipitor -) 80 mg PO HS [facility] Last Admin: 11/22/18 22:33 Dose: 80 mg Collagenase (Santyl -) 1 applic TP DAILY [facility]; Protocol Last Admin: 11/23/18 09:02 Dose: 1 applic Heparin Sodium (Porcine) (Heparin -) 5,000 unit SQ TID [facility] Last Admin: 11/23/18 13:31 Dose: 5,000 unit Insulin Aspart (Novolog Vial Sliding Scale -) 1 vial SQ Q6H [facility]; Protocol Last Admin: 11/23/18 10:43 Dose: 2 unit Lisinopril (Prinivil) 10 mg PO DAILY [facility] Last Admin: 11/23/18 09:02 Dose: 10 mg Metoprolol Succinate (Toprol Xl -) 75 mg PO DAILY [facility] - Objective Vital Signs: Vital Signs Temperature 98.4 F 11/23/18 10:00 Pulse Rate 86 11/23/18 10:00 Respiratory Rate 20 11/23/18 10:00 Blood Pressure 163/93 11/23/18 10:00 O2 Sat by Pulse Oximetry (%) 98 11/23/18 09:00 Constitutional: Yes: No Distress, Calm Cardiovascular: Yes: S1, S2 Respiratory: Yes: Regular, CTA Bilaterally Gastrointestinal: Yes: Normal Bowel Sounds, Soft Musculoskeletal: Yes: WNL Extremities: Yes: Other Neurological: Yes: Alert, Oriented Psychiatric: Yes: Alert Labs: CBC, BMP 11/23/18 05:27 11/23/18 05:27 INR, PTT INR 1.09 (0.83-1.09) 11/14/18 00:00 Assessment/Plan Problem List - Problems (1) ESPINOZA (acute kidney injury) Code(s): N17.9 - ACUTE KIDNEY FAILURE, UNSPECIFIED (2) CVA (cerebral vascular accident) Code(s): I63.9 - CEREBRAL INFARCTION, UNSPECIFIED Qualifiers: Laterality of affected vessel: left (3) Elevated troponin Code(s): R79.89 - OTHER SPECIFIED ABNORMAL FINDINGS OF BLOOD CHEMISTRY (4) Hypertension Code(s): I10 - ESSENTIAL (PRIMARY) HYPERTENSION (5) Rhabdomyolysis Code(s): M62.82 - RHABDOMYOLYSIS leukocytosis plan continue abx urology if can see the patient for the tip of the penis
[2018-11-23 14:05] VITALS: BP 141/89; PULSE 77
--- NOTE | 2018-11-23 14:35 | PN ---
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 (short form) - Note 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: Renal follow up for ESPINOZA Seen and examined at the bedside no acute complaints for discharge to rehab today denies any sob, cp, abd pain making urine Vital Signs Temperature 98.4 F 11/23/18 14:04 Pulse Rate 77 11/23/18 14:04 Respiratory Rate 20 11/23/18 14:04 Blood Pressure 141/89 11/23/18 14:04 O2 Sat by Pulse Oximetry (%) 98 11/23/18 09:00 Intake & Output 11/20/18 11/21/18 11/22/18 11/23/18 23:59 23:59 23:59 23:59 Intake Total 062 975 5156 130 Output Total 1050 600 Balance -190 240 620 130 NAD on NC O2 awake and alert neck supple RRR CTA soft NT/ND no LE edema CBC, BMP 11/23/18 05:27 11/23/18 05:27 Current Medications Acetaminophen (Tylenol -) 650 mg PO Q6H PRN PRN Reason: FEVER Last Admin: 11/19/18 21:44 Dose: 650 mg Amlodipine Besylate (Norvasc -) 10 mg PO DAILY [facility] Last Admin: 11/23/18 09:02 Dose: 10 mg Amoxicillin/Clavulanate Potassium (Augmentin - 500mg Tablet) 1 tab PO BID@0800, 1730 [facility] Last Admin: 11/23/18 08:58 Dose: 1 tab Aspirin (Ecotrin -) 81 mg PO DAILY [facility] Last Admin: 11/23/18 09:02 Dose: 81 mg Atorvastatin Calcium (Lipitor -) 80 mg PO HS [facility] Last Admin: 11/22/18 22:33 Dose: 80 mg Collagenase (Santyl -) 1 applic TP DAILY [facility]; Protocol Last Admin: 11/23/18 09:02 Dose: 1 applic Heparin Sodium (Porcine) (Heparin -) 5,000 unit SQ TID [facility] Last Admin: 11/23/18 13:31 Dose: 5,000 unit Insulin Aspart (Novolog Vial Sliding Scale -) 1 vial SQ Q6H [facility]; Protocol Last Admin: 11/23/18 10:43 Dose: 2 unit Lisinopril (Prinivil) 10 mg PO DAILY [facility] Last Admin: 11/23/18 09:02 Dose: 10 mg Metoprolol Succinate (Toprol Xl -) 75 mg PO DAILY [facility] 63 year old gentleman with history of hypertension and DM type 2 who presented from home with AMS and fall and found to have acute CVA and rhabdo with worsening renal function. 1. Acute Renal Injury likely due to pigment injury from rhabdomyolysis vs. transient renal hypoprofusion 2. Acute CVA 3. Rhabdomyolysis 4. Hypertension 4. DM type 2 Renal function stable no electrolyte or acid base disturbance Renal US showed no obstruction or stones. stable for discharge from renal perspective can follow up with PMD as outpatient Thank you Eusebio Fritz DO
--- NOTE | 2018-11-23 17:04 | PN ---
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 (short form) - Note 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: 63 year old male history of HTN,HLD,DM, came with left sided hemiparesis. Patient was lying on the floor for five days, when he was found laying on [place]. Paitent never had stroke, he did have ? cad. Patient had ct head showed right basal ganglia ishcemic lesion. He is waiting for mri. He had speech and passed swallowing evaluation. mri of brain confirmed stroke and carotid ultrasound unremarkable. No new syptoms, waiting for placement at [facility] , patient passed swalloing and on chopped wbc is going up and was started on augmentin by ID. patient is feeling good no new complain NEUROLOGICAL EXAMINATION Alert oriented x 2, speech is dysarthric, neck is Supple left sided facial palsy, eomi, left dense hemiparesis ct head right basal ganglia infarct, mri confirmed right basal ganglia stroke left ica showed moderate stenosis Assessment/Plan Right mca stroke ( right basal ganglia) risk factor DM,HTN. asymptomatic left ica moderate stenosis PLAN: continue aspirin and statin PT, patient is being discharged to [facility] Thanking you so much Beau Young MD
== END 2018-11-23 15:57 | DRG 64 ==
LOC: JER 22:26 → JERBED 11-14 02:57 → J4S 11-15 00:26
PROVIDERS: ADMIT Internal Medicine; ATTEND Nurse Practitioner Family
DX: I63.9 Cerebral infarction, unspecified (principal); I21.A1 Myocardial infarction type 2; M62.82 Rhabdomyolysis; E87.2 Acidosis; E87.0 Hyperosmolality and hypernatremia; I69.354 Hemiplegia and hemiparesis following cerebral infarction affecting left non-dominant side; L97.528 Non-pressure chronic ulcer of other part of left foot with other specified severity; R29.718 NIHSS score 18; E11.621 Type 2 diabetes mellitus with foot ulcer; I10 Essential (primary) hypertension; G51.0 Bell's palsy; E78.5 Hyperlipidemia, unspecified; I69.991 Dysphagia following unspecified cerebrovascular disease; R79.89 Other specified abnormal findings of blood chemistry; S91.302A Unspecified open wound, left foot, initial encounter; R41.82 Altered mental status, unspecified; I45.10 Unspecified right bundle-branch block; E87.70 Fluid overload, unspecified; E66.8 Other obesity; Z68.32 Body mass index [BMI] 32.0-32.9, adult; W18.39XA Other fall on same level, initial encounter; Y92.098 Other place in other non-institutional residence as the place of occurrence of the external cause
CPT/HCPCS: 36415; 70450-TC; 70544-TC; 70551-TC; 71045-TC-FY; 71250-TC; 73630-TC-LT; 73718-TC-LT; 74230-TC-FY; 76705-TC; 76775-TC; 80048; 80053; 81003; 82550; 82553; 82565; 82570; 82803; 82962; 83036; 83605; 83718; 83721; 83735; 83874; 84100; 84156; 84300; 84478; 84484; 85025; 85610; 85730; 87040; 87086; 87205; 92611-GN; 93005; 93010; 93306-TC; 93880-TC; 93970-TC; 94010; 97116-GP; 97162-GP; 99285-25; J0131; J1644; J7030